=== PATIENT | female | born 1970 | race African-American/Black ===

== ENCOUNTER → 2017-01-31 | Outpatient (CLI) | payer BC ==
[~2017-01-31] MED LIST: LOSA1TAB33 PO
[2017-01-31 12:05] LABS: BASOPHILS % 1.2 % (0.0-2.0); EOSINOPHILS % 1.6 % (0.0-5.0); HEMATOCRIT. 38.7 % (36.0-48.0); HEMOGLOBIN. 12.4 g/dL (12.0-16.0); LYMPHOCYTES % 27.5 % (20.0-50.0); MEAN CORPUSCULAR HEMOGLOBIN 22.1 pg (28.0-32.0); MEAN CORPUSCULAR VOLUME 69.2 fL (81.0-99.0); MEAN PLATELET VOLUME 8.2 fl (7.4-10.4); MONOCYTES % 8.3 % (2.0-8.0); NEUTROPHILS % 61.4 % (40.0-76.0); PLATELET 329 x1000/uL (130-400); RED BLOOD CELL COUNT 5.59 mill/uL (4.2-5.4); RED CELL DISTRIBUTION WIDTH 15.6 % (11.6-14.6); WHITE BLOOD COUNT 8.6 x1000/uL (4.5-11.0)
[2017-01-31 12:12] LABS: ADD RBC MORPHOLOGY YES; DIFFERENTIAL COMMENT 1
[2017-01-31 12:28] LABS: ALANINE AMINOTRANSFERASE 28 IU/L (13-61); ANION GAP 13; CALCIUM 9.4 mg/dL (8.5-10.1); CARBON DIOXIDE 29 mEq/L (21-32); CHLORIDE 100 mEq/L (98-107); HDL CHOLESTEROL 76 mg/dL (40-59); INDEX HEMOLYSI 1 (1-3); INDEX ICTERIC 1 (1-4); INDEX LIPEMIC 1 (1-3); LDL CHOLESTEROL 134 mg/dL (5-100); T4 FREE 1.07 ng/dL (0.76-1.46); TRIGLYCERIDE 120 mg/dL (0-150); UREA NITROGEN BLOOD 12 mg/dL (7-21); eGFR > 60 mL/min (>60)
[2017-01-31 12:38] LABS: INDEX HEMOLYSI 1 (1-3)
[2017-01-31 12:53] LABS: VITAMIN B12 SERUM 638 pg/mL (211-911)
[2017-01-31 12:57] LABS: FOLIC ACID (FOLATE) SERUM > 20.00 ng/mL (>5.38)
[2017-01-31 13:20] LABS: PLATELET ESTIMATE NORMAL
[2017-02-01 09:13] LABS: VITAMIN D 25-OH 25.4 ng/mL (30.0-100.0)
[2017-02-01 13:26] LABS: *CREATININE RANDOM URINE 55.3 mg/dL (Not Estab.); MICROALBUMIN RANDOM URINE <3.0 ug/mL (Not Estab.); MICROALBUMIN/CREATININE RATIO <5.4 mg/g creat (0.0-30.0)
[2017-02-01 19:07] LABS: ANTI-NUCLEAR ANTIBODIES DIRECT Negative (Negative)
== END | disposition home or self-care (01) ==
LOC: LAB 10:46
PROVIDERS: ATTEND Internal Medicine Endocrinology, Diabetes & Metabolism
DX: I10 Essential (primary) hypertension (principal); E11.9 Type 2 diabetes mellitus without complications; M19.90 Unspecified osteoarthritis, unspecified site; E04.1 Nontoxic single thyroid nodule
CPT/HCPCS: 36415; 80053; 80061; 82043; 82306; 82570; 82607; 82746; 83036; 83921; 84439; 84443; 85025; 85651; 86038; 86430

== ENCOUNTER → 2017-05-15 | Outpatient (CLI) | payer BC ==
[2017-05-15 11:03] LABS: HEMATOCRIT. 38.4 % (36.0-48.0); HEMOGLOBIN. 12.2 g/dL (12.0-16.0); MEAN CORPUSCULAR HEMOGLOBIN 21.9 pg (28.0-32.0); MEAN CORPUSCULAR VOLUME 68.7 fL (81.0-99.0); MEAN PLATELET VOLUME 8.4 fl (7.4-10.4); PLATELET 319 x1000/uL (130-400); RED BLOOD CELL COUNT 5.58 mill/uL (4.2-5.4); RED CELL DISTRIBUTION WIDTH 15.4 % (11.6-14.6)
[2017-05-15 11:44] LABS: CARBON DIOXIDE 27 mEq/L (21-32); CHLORIDE 100 mEq/L (98-107); HDL CHOLESTEROL 67 mg/dL (40-59); LDL CHOLESTEROL 124 mg/dL (5-100); T4 FREE 1.06 ng/dL (0.76-1.46)
[2017-05-15 12:00] LABS: VITAMIN B12 SERUM 749 pg/mL (211-911)
[2017-05-15 12:52] LABS: FOLIC ACID (FOLATE) SERUM > 20.00 ng/mL (>5.38)
[2017-05-15 17:38] LABS: PLATELET ESTIMATE NORMAL
[2017-05-16 13:09] LABS: *CREATININE RANDOM URINE 79.9 mg/dL (Not Estab.); MICROALBUMIN RANDOM URINE 4.1 ug/mL (Not Estab.)
[2017-05-16 17:12] LABS: ANTI-NUCLEAR ANTIBODIES DIRECT Negative (Negative)
[2017-05-18 08:09] LABS: METHYLMALONIC ACID 84 nmol/L (0-378)
== END | disposition home or self-care (01) ==
LOC: LAB 10:32
PROVIDERS: ATTEND Internal Medicine Endocrinology, Diabetes & Metabolism
DX: I10 Essential (primary) hypertension (principal); E11.9 Type 2 diabetes mellitus without complications; M19.90 Unspecified osteoarthritis, unspecified site; E55.9 Vitamin D deficiency, unspecified
CPT/HCPCS: 36415; 80053; 80061; 82043; 82306; 82570; 82607; 82746; 83036; 83921; 84439; 84443; 85025; 85651; 86038

== ENCOUNTER → 2017-07-12 | Outpatient (CLI) | payer BC | END | disposition home or self-care (01) | LOC: MAMMO 10:37 | PROVIDERS: ATTEND Internal Medicine Endocrinology, Diabetes & Metabolism | DX: Z12.31 Encounter for screening mammogram for malignant neoplasm of breast (principal) | CPT/HCPCS: G0202 ==

== ENCOUNTER 2017-11-02 07:25 | Emergency (ER) | payer BC ==
[~2017-11-02] VITALS: Ht 175.3 cm; Wt 142.0 kg
[~2017-11-02 07:25] MED LIST changes: -LOSA1TAB33 PO; +LOSA1TAB40 PO
[2017-11-02 08:15] VITALS: BP 140/80
[2017-11-02] MEDS ORDERED: SULFACETAMIDE SODIUM 10% OPHTH DROPS 15ML BOTHEYE ONE (08:15)
== END 2017-11-02 08:55 | disposition home or self-care (01) ==
LOC: ER 07:36
DX: H10.30 Unspecified acute conjunctivitis, unspecified eye (principal); J02.9 Acute pharyngitis, unspecified; I10 Essential (primary) hypertension; E11.9 Type 2 diabetes mellitus without complications; N83.209 Unspecified ovarian cyst, unspecified side
CPT/HCPCS: 99283; Z7610

== ENCOUNTER → 2017-12-16 | Outpatient (CLI) | payer BC ==
[2017-12-16 10:57] LABS: BASOPHILS % 1.4 % (0.0-2.0); EOSINOPHILS % 2.1 % (0.0-5.0); HEMATOCRIT. 37.7 % (36.0-48.0); HEMOGLOBIN. 12.3 g/dL (12.0-16.0); LYMPHOCYTES % 26.4 % (20.0-50.0); MEAN CORPUSCULAR HEMOGLOBIN 22.5 pg (28.0-32.0); MEAN CORPUSCULAR VOLUME 68.7 fL (81.0-99.0); MEAN PLATELET VOLUME 8.2 fl (7.4-10.4); MONOCYTES % 11.6 % (2.0-8.0); NEUTROPHILS % 58.5 % (40.0-76.0); PLATELET 387 x1000/uL (130-400); RED BLOOD CELL COUNT 5.49 mill/uL (4.2-5.4); RED CELL DISTRIBUTION WIDTH 15.8 % (11.6-14.6)
[2017-12-16 11:09] LABS: CHLORIDE 97 mEq/L (98-107)
[2017-12-16 11:16] LABS: LDL CHOLESTEROL 117 mg/dL (5-100)
[2017-12-16 11:17] LABS: HDL CHOLESTEROL 64 mg/dL (40-59); TOTAL IRON BINDING CAPACITY 378 ug/dL (250-450)
[2017-12-16 11:20] LABS: KETONES URINE NEGATIVE (NEGATIVE); LEUKOCYTE ESTERASE URINE NEGATIVE (NEGATIVE); NITRITE URINE NEGATIVE (NEGATIVE); OCCULT BLOOD URINE 2+ (NEGATIVE); PH URINE 5.5 (4.5-8.0); PROTEIN URINE NEGATIVE (NEGATIVE); SPECIFIC GRAVITY URINE 1.037 (1.005-1.030); T4 FREE 1.07 ng/dL (0.76-1.46); UROBILINOGEN URINE 0.2 E.U./dL (0.2-1.0)
[2017-12-16 11:23] LABS: CLARITY URINE CLEAR (CLEAR); COLOR URINE YELLOW (YELLOW)
[2017-12-16 11:32] LABS: FERRITIN 48 ng/mL (10-291)
[2017-12-16 11:33] LABS: FOLIC ACID (FOLATE) SERUM >20 ng/mL ng/mL (>5.38)
[2017-12-16 12:27] LABS: VITAMIN B12 SERUM 616 pg/mL (211-911)
[2017-12-16 13:10] LABS: PLATELET ESTIMATE NORMAL
[2017-12-17 09:08] LABS: VITAMIN D 25-OH 22.7 ng/mL (30.0-100.0)
[2017-12-17 13:07] LABS: *CREATININE RANDOM URINE 60.9 mg/dL (Not Estab.); A/G RATIO 1.1 (0.7-1.7); ALBUMIN 3.9 g/dL (2.9-4.4); ALPHA-1-GLOBULIN 0.2 g/dL (0.0-0.4); ALPHA-2-GLOBULIN 0.7 g/dL (0.4-1.0); BETA GLOBULIN 1.3 g/dL (0.7-1.3); GAMMA GLOBULINS 1.2 g/dL (0.4-1.8); GLOBULIN TOTAL 3.4 g/dL (2.2-3.9); M-SPIKE Not Observed g/dL (Not Observed); MICROALBUMIN RANDOM URINE 4.1 ug/mL (Not Estab.); TOTAL PROTEIN SERUM 7.3 g/dL (6.0-8.5)
== END | disposition home or self-care (01) ==
LOC: LAB 10:21
PROVIDERS: ATTEND Internal Medicine Endocrinology, Diabetes & Metabolism
DX: I10 Essential (primary) hypertension (principal); E11.9 Type 2 diabetes mellitus without complications; E04.1 Nontoxic single thyroid nodule; D64.9 Anemia, unspecified; R29.2 Abnormal reflex; R79.89 Other specified abnormal findings of blood chemistry
CPT/HCPCS: 36415; 80053; 80061; 81003; 82043; 82306; 82570; 82607; 82728; 82746; 83036; 83540; 83550; 83921; 84155; 84165; 84439; 84443; 85025; 87086

== ENCOUNTER → 2018-07-03 | Outpatient (CLI) | payer BC ==
[2018-07-03 10:28] LABS: CHLORIDE 98 mEq/L (98-107)
[2018-07-03 10:30] LABS: BASOPHILS % 1.1 % (0.0-2.0); EOSINOPHILS % 1.7 % (0.0-5.0); HEMATOCRIT. 37.8 % (36.0-48.0); HEMOGLOBIN. 12.1 g/dL (12.0-16.0); LYMPHOCYTES % 25.6 % (20.0-50.0); MEAN CORPUSCULAR HEMOGLOBIN 22.3 pg (28.0-32.0); MEAN CORPUSCULAR VOLUME 69.8 fL (81.0-99.0); MEAN PLATELET VOLUME 8.7 fl (7.4-10.4); MONOCYTES % 7.3 % (2.0-8.0); NEUTROPHILS % 64.3 % (40.0-76.0); PLATELET 342 x1000/uL (130-400); RED BLOOD CELL COUNT 5.43 mill/uL (4.2-5.4); RED CELL DISTRIBUTION WIDTH 15.7 % (11.6-14.6)
[2018-07-03 10:35] LABS: CLARITY URINE CLEAR (CLEAR); COLOR URINE YELLOW (YELLOW); KETONES URINE NEGATIVE (NEGATIVE); LEUKOCYTE ESTERASE URINE NEGATIVE (NEGATIVE); NITRITE URINE NEGATIVE (NEGATIVE); OCCULT BLOOD URINE NEGATIVE (NEGATIVE); PROTEIN URINE NEGATIVE (NEGATIVE); SPECIFIC GRAVITY URINE 1.028 (1.005-1.030); UROBILINOGEN URINE 0.2 E.U./dL (0.2-1.0)
[2018-07-03 10:39] LABS: HDL CHOLESTEROL 63 mg/dL (40-59); LDL CHOLESTEROL 127 mg/dL (5-100); T4 FREE 1.07 ng/dL (0.76-1.46); TOTAL IRON BINDING CAPACITY 360 ug/dL (250-450)
[2018-07-03 11:24] LABS: VITAMIN B12 SERUM 506 pg/mL (211-911)
[2018-07-03 11:30] LABS: FOLIC ACID (FOLATE) SERUM > 20.00 ng/mL (>5.38)
[2018-07-03 12:24] LABS: FERRITIN 52 ng/mL (10-291)
[2018-07-03 15:19] LABS: PLATELET ESTIMATE NORMAL
[2018-07-04 09:11] LABS: MICROALBUMIN RANDOM URINE <3.0 ug/mL (Not Estab.)
[2018-07-04 13:11] LABS: A/G RATIO 1.3 (0.7-1.7); ALBUMIN 3.9 g/dL (2.9-4.4); ALPHA-1-GLOBULIN 0.2 g/dL (0.0-0.4); ALPHA-2-GLOBULIN 0.7 g/dL (0.4-1.0); BETA GLOBULIN 1.2 g/dL (0.7-1.3); GLOBULIN TOTAL 3.1 g/dL (2.2-3.9); M-SPIKE Not Observed g/dL (Not Observed)
[2018-07-09 06:19] LABS: METHYLMALONIC ACID 103 nmol/L (0-378)
== END | disposition home or self-care (01) ==
LOC: LAB 07:43
PROVIDERS: ATTEND Internal Medicine Endocrinology, Diabetes & Metabolism
DX: I10 Essential (primary) hypertension (principal); E78.5 Hyperlipidemia, unspecified; D64.9 Anemia, unspecified; E04.1 Nontoxic single thyroid nodule
CPT/HCPCS: 36415; 80061; 82043; 82306; 82570; 82607; 82728; 82746; 83036; 83540; 83550; 83921; 84155; 84165; 84439; 84443

== ENCOUNTER → 2018-07-11 | Outpatient (CLI) | payer BC ==
[2018-07-11 17:57] LABS: CLARITY URINE CLEAR (CLEAR); COLOR URINE YELLOW (YELLOW); KETONES URINE NEGATIVE (NEGATIVE); LEUKOCYTE ESTERASE URINE NEGATIVE (NEGATIVE); NITRITE URINE NEGATIVE (NEGATIVE); OCCULT BLOOD URINE NEGATIVE (NEGATIVE); PROTEIN URINE NEGATIVE (NEGATIVE); SPECIFIC GRAVITY URINE 1.039 (1.005-1.030); UROBILINOGEN URINE 0.2 E.U./dL (0.2-1.0)
== END | disposition home or self-care (01) ==
LOC: LAB 17:18
PROVIDERS: ATTEND Obstetrics & Gynecology Obstetrics
DX: N39.0 Urinary tract infection, site not specified (principal)

== ENCOUNTER → 2018-08-06 | Outpatient (CLI) | payer BC | END | disposition home or self-care (01) | LOC: US 12:20 | PROVIDERS: ATTEND Obstetrics & Gynecology Obstetrics | DX: D25.9 Leiomyoma of uterus, unspecified (principal) | CPT/HCPCS: 76830; 76856 ==

== ENCOUNTER → 2018-10-13 | Outpatient (CLI) | payer BC ==
[2018-10-13 09:28] LABS: CLARITY URINE CLEAR (CLEAR); COLOR URINE YELLOW (YELLOW); KETONES URINE NEGATIVE (NEGATIVE); LEUKOCYTE ESTERASE URINE NEGATIVE (NEGATIVE); NITRITE URINE NEGATIVE (NEGATIVE); OCCULT BLOOD URINE NEGATIVE (NEGATIVE); PROTEIN URINE NEGATIVE (NEGATIVE); UROBILINOGEN URINE 0.2 E.U./dL (0.2-1.0)
[2018-10-13 09:29] LABS: BASOPHILS % 1.1 % (0.0-2.0); EOSINOPHILS % 1.9 % (0.0-5.0); HEMOGLOBIN. 12.6 g/dL (12.0-16.0); MEAN CORPUSCULAR VOLUME 69.8 fL (81.0-99.0); MEAN PLATELET VOLUME 8.8 fl (7.4-10.4); MONOCYTES % 7.4 % (2.0-8.0); NEUTROPHILS % 62.6 % (40.0-76.0); PLATELET 349 x1000/uL (130-400); RED BLOOD CELL COUNT 5.74 mill/uL (4.2-5.4); RED CELL DISTRIBUTION WIDTH 15.5 % (11.6-14.6)
[2018-10-13 09:50] LABS: CHLORIDE 105 mEq/L (98-107)
[2018-10-13 09:57] LABS: LDL CHOLESTEROL 95 mg/dL (5-100)
[2018-10-13 09:58] LABS: HDL CHOLESTEROL 64 mg/dL (40-59)
[2018-10-13 09:59] LABS: T4 FREE 1.01 ng/dL (0.76-1.46)
[2018-10-13 12:55] LABS: PLATELET ESTIMATE NORMAL
[2018-10-14 13:06] LABS: *CREATININE RANDOM URINE 99.4 mg/dL (Not Estab.); MICROALBUMIN RANDOM URINE 4.6 ug/mL (Not Estab.)
== END | disposition home or self-care (01) ==
LOC: LAB 08:25
PROVIDERS: ATTEND Internal Medicine Endocrinology, Diabetes & Metabolism
DX: E78.5 Hyperlipidemia, unspecified (principal); E11.9 Type 2 diabetes mellitus without complications; I10 Essential (primary) hypertension; R31.9 Hematuria, unspecified
CPT/HCPCS: 36415; 80061; 82043; 82306; 82570; 83036; 84439; 84443

== ENCOUNTER → 2018-12-26 | Outpatient (CLI) | payer BC ==
[2018-12-26 11:19] LABS: CLARITY URINE CLEAR (CLEAR); COLOR URINE YELLOW (YELLOW); KETONES URINE NEGATIVE (NEGATIVE); LEUKOCYTE ESTERASE URINE NEGATIVE (NEGATIVE); NITRITE URINE NEGATIVE (NEGATIVE); OCCULT BLOOD URINE 3+ (NEGATIVE); PH URINE 5.5 (4.5-8.0); PROTEIN URINE NEGATIVE (NEGATIVE); SPECIFIC GRAVITY URINE 1.024 (1.005-1.030); UROBILINOGEN URINE 0.2 E.U./dL (0.2-1.0)
[2018-12-26 11:28] LABS: BASOPHILS % 1.5 % (0.0-2.0); EOSINOPHILS % 1.3 % (0.0-5.0); HEMATOCRIT. 37.6 % (36.0-48.0); HEMOGLOBIN. 11.9 g/dL (12.0-16.0); LYMPHOCYTES % 26.2 % (20.0-50.0); MEAN CORPUSCULAR HEMOGLOBIN 22.1 pg (28.0-32.0); MEAN CORPUSCULAR VOLUME 69.9 fL (81.0-99.0); MEAN PLATELET VOLUME 8.2 fl (7.4-10.4); MONOCYTES % 8.5 % (2.0-8.0); NEUTROPHILS % 62.5 % (40.0-76.0); PLATELET 361 x1000/uL (130-400); RED BLOOD CELL COUNT 5.39 mill/uL (4.2-5.4); RED CELL DISTRIBUTION WIDTH 15.6 % (11.6-14.6)
[2018-12-26 12:33] LABS: CHLORIDE 102 mEq/L (98-107)
[2018-12-26 12:38] LABS: PLATELET ESTIMATE NORMAL
[2018-12-26 12:42] LABS: LDL CHOLESTEROL 114 mg/dL (5-100)
[2018-12-26 12:43] LABS: HDL CHOLESTEROL 78 mg/dL (40-59); T4 FREE 1.15 ng/dL (0.76-1.46)
[2019-01-01 09:06] LABS: VITAMIN D 25-OH 26.8 ng/mL (30.0-100.0)
== END | disposition home or self-care (01) ==
LOC: US 10:24
PROVIDERS: ATTEND Internal Medicine Endocrinology, Diabetes & Metabolism
DX: E04.1 Nontoxic single thyroid nodule (principal); E11.9 Type 2 diabetes mellitus without complications; I10 Essential (primary) hypertension; E78.5 Hyperlipidemia, unspecified
CPT/HCPCS: 36415; 76536; 80061; 82306; 83036; 84439; 84443; 86800

== ENCOUNTER 2019-01-02 19:25 | Emergency (ER) | payer BC ==
[~2019-01-02] VITALS: Ht 175.3 cm; Wt 146.0 kg
[2019-01-02] MEDS ORDERED: HYDROCODONE/ACETAMINOPHEN 5/325MG TABLET PO ONE (20:00)
[2019-01-02 21:30] VITALS: BP 163/95
== END 2019-01-02 21:32 | disposition home or self-care (01) ==
LOC: ER 19:25
DX: S30.0XXA Contusion of lower back and pelvis, initial encounter (principal); E11.9 Type 2 diabetes mellitus without complications; I10 Essential (primary) hypertension; Z90.89 Acquired absence of other organs; Z79.899 Other long term (current) drug therapy; V49.88XA Car occupant (driver) (passenger) injured in other specified transport accidents, initial encounter; Y93.89 Activity, other specified; Y92.89 Other specified places as the place of occurrence of the external cause; Y99.8 Other external cause status
CPT/HCPCS: 72070; 72100; 99283

== ENCOUNTER → 2019-05-06 | Outpatient (CLI) | payer BC ==
[2019-05-06 09:25] LABS: BASOPHILS % 1.3 % (0.0-2.0); EOSINOPHILS % 1.8 % (0.0-5.0); HEMATOCRIT. 37.6 % (36.0-48.0); HEMOGLOBIN. 12.2 g/dL (12.0-16.0); LYMPHOCYTES % 26.3 % (20.0-50.0); MEAN CORPUSCULAR HEMOGLOBIN 22.5 pg (28.0-32.0); MEAN CORPUSCULAR VOLUME 69.5 fL (81.0-99.0); MEAN PLATELET VOLUME 8.5 fl (7.4-10.4); MONOCYTES % 9.6 % (2.0-8.0); PLATELET 319 x1000/uL (130-400); RED BLOOD CELL COUNT 5.41 mill/uL (4.2-5.4); RED CELL DISTRIBUTION WIDTH 15.1 % (11.6-14.6)
[2019-05-06 09:40] LABS: CHLORIDE 100 mEq/L (98-107)
[2019-05-06 09:50] LABS: LDL CHOLESTEROL 122 mg/dL (5-100)
[2019-05-06 09:51] LABS: T4 FREE 1.12 ng/dL (0.76-1.46)
[2019-05-06 09:52] LABS: HDL CHOLESTEROL 65 mg/dL (40-59)
[2019-05-06 12:56] LABS: PLATELET ESTIMATE NORMAL
== END | disposition home or self-care (01) ==
LOC: LAB 08:24
PROVIDERS: ATTEND Internal Medicine Endocrinology, Diabetes & Metabolism
DX: E04.1 Nontoxic single thyroid nodule (principal); I10 Essential (primary) hypertension; E11.9 Type 2 diabetes mellitus without complications; E78.5 Hyperlipidemia, unspecified; Z79.899 Other long term (current) drug therapy
CPT/HCPCS: 36415; 80061; 82306; 83036; 84439; 84443

== ENCOUNTER → 2019-06-11 | Outpatient (CLI) | payer BC | END | disposition home or self-care (01) | LOC: US 13:42 | PROVIDERS: ATTEND Obstetrics & Gynecology Obstetrics | DX: D25.9 Leiomyoma of uterus, unspecified (principal); Z90.721 Acquired absence of ovaries, unilateral | CPT/HCPCS: 76830; 76856 ==

== ENCOUNTER → 2019-07-09 | Outpatient (CLI) | payer BC | END | disposition home or self-care (01) | LOC: MRI 07-08 10:31 | DX: S83.241A Other tear of medial meniscus, current injury, right knee, initial encounter (principal); M94.261 Chondromalacia, right knee; M17.11 Unilateral primary osteoarthritis, right knee; X58.XXXA Exposure to other specified factors, initial encounter; Y93.89 Activity, other specified; Y92.89 Other specified places as the place of occurrence of the external cause; Y99.8 Other external cause status | CPT/HCPCS: 73721 ==

== ENCOUNTER → 2019-08-20 | Outpatient (CLI) | payer BC | END | disposition home or self-care (01) | LOC: MAMMO 09:02 | PROVIDERS: ATTEND Internal Medicine Endocrinology, Diabetes & Metabolism | DX: Z12.31 Encounter for screening mammogram for malignant neoplasm of breast (principal) | CPT/HCPCS: 77067 ==

== ENCOUNTER → 2019-10-13 | Outpatient (CLI) | payer BC ==
[2019-10-13 08:55] LABS: BASOPHILS % 1.1 % (0.0-2.0); EOSINOPHILS % 1.4 % (0.0-5.0); HEMATOCRIT. 39.5 % (36.0-48.0); HEMOGLOBIN. 12.7 g/dL (12.0-16.0); LYMPHOCYTES % 25.6 % (20.0-50.0); MEAN CORPUSCULAR HEMOGLOBIN 22.6 pg (28.0-32.0); MEAN CORPUSCULAR VOLUME 70.1 fL (81.0-99.0); MEAN PLATELET VOLUME 8.4 fl (7.4-10.4); MONOCYTES % 7.6 % (2.0-8.0); NEUTROPHILS % 64.3 % (40.0-76.0); PLATELET 312 x1000/uL (130-400); RED BLOOD CELL COUNT 5.63 mill/uL (4.2-5.4); RED CELL DISTRIBUTION WIDTH 15.5 % (11.6-14.6)
[2019-10-13 09:03] LABS: CHLORIDE 104 mEq/L (98-107)
[2019-10-13 09:06] LABS: CLARITY URINE CLEAR (CLEAR); COLOR URINE YELLOW (YELLOW); KETONES URINE NEGATIVE (NEGATIVE); LEUKOCYTE ESTERASE URINE NEGATIVE (NEGATIVE); NITRITE URINE NEGATIVE (NEGATIVE); OCCULT BLOOD URINE NEGATIVE (NEGATIVE); PROTEIN URINE NEGATIVE (NEGATIVE); UROBILINOGEN URINE 0.2 E.U./dL (0.2-1.0)
[2019-10-13 09:10] LABS: LDL CHOLESTEROL 111 mg/dL (5-100)
[2019-10-13 09:12] LABS: HDL CHOLESTEROL 64 mg/dL (40-59); T4 FREE 1.12 ng/dL (0.76-1.46)
[2019-10-14 10:08] LABS: *CREATININE RANDOM URINE 53.9 mg/dL (Not Estab.); MICROALBUMIN RANDOM URINE <3.0 ug/mL (Not Estab.)
== END | disposition home or self-care (01) ==
LOC: LAB 08:11
PROVIDERS: ATTEND Internal Medicine Endocrinology, Diabetes & Metabolism
DX: I10 Essential (primary) hypertension (principal); E11.9 Type 2 diabetes mellitus without complications; E78.5 Hyperlipidemia, unspecified; E04.1 Nontoxic single thyroid nodule
CPT/HCPCS: 36415; 80053; 80061; 81003; 82043; 82570; 83036; 84439; 84443; 85025; 86800

== ENCOUNTER → 2020-05-26 | Outpatient (CLI) | payer BC ==
[2020-05-26 09:10] LABS: EOSINOPHILS % 2.3 % (0.0-5.0); HEMATOCRIT. 39.7 % (36.0-48.0); HEMOGLOBIN. 12.6 g/dL (12.0-16.0); LYMPHOCYTES % 28.9 % (20.0-50.0); MEAN CORPUSCULAR HEMOGLOBIN 22.3 pg (28.0-32.0); MEAN CORPUSCULAR VOLUME 70.1 fL (81.0-99.0); MEAN PLATELET VOLUME 8.4 fl (7.4-10.4); MONOCYTES % 8.5 % (2.0-8.0); NEUTROPHILS % 59.3 % (40.0-76.0); PLATELET 323 x1000/uL (130-400); RED BLOOD CELL COUNT 5.66 mill/uL (4.2-5.4); RED CELL DISTRIBUTION WIDTH 15.5 % (11.6-14.6)
[2020-05-26 09:32] LABS: CHLORIDE 101 mEq/L (98-107)
[2020-05-26 09:39] LABS: LDL CHOLESTEROL 132 mg/dL (5-100)
[2020-05-26 09:41] LABS: HDL CHOLESTEROL 70 mg/dL (40-59); T4 FREE 1.08 ng/dL (0.76-1.46)
[2020-05-27 09:11] LABS: VITAMIN D 25-OH 37.3 ng/mL (30.0-100.0)
== END | disposition home or self-care (01) ==
LOC: LAB 08:27
PROVIDERS: ATTEND Internal Medicine Endocrinology, Diabetes & Metabolism
DX: E11.9 Type 2 diabetes mellitus without complications (principal); I10 Essential (primary) hypertension; E04.1 Nontoxic single thyroid nodule; E78.5 Hyperlipidemia, unspecified
CPT/HCPCS: 36415; 80053; 80061; 82306; 83036; 84439; 84443; 85025; 86800

== ENCOUNTER → 2020-07-21 | Outpatient (CLI) | payer BC ==
[2020-07-21 09:31] LABS: BASOPHILS % 1.3 % (0.0-2.0); EOSINOPHILS % 1.9 % (0.0-5.0); HEMATOCRIT. 39.1 % (36.0-48.0); HEMOGLOBIN. 12.5 g/dL (12.0-16.0); LYMPHOCYTES % 29.2 % (20.0-50.0); MEAN CORPUSCULAR HEMOGLOBIN 22.3 pg (28.0-32.0); MEAN CORPUSCULAR VOLUME 69.5 fL (81.0-99.0); MEAN PLATELET VOLUME 8.6 fl (7.4-10.4); MONOCYTES % 9.6 % (2.0-8.0); PLATELET 338 x1000/uL (130-400); RED BLOOD CELL COUNT 5.62 mill/uL (4.2-5.4); RED CELL DISTRIBUTION WIDTH 15.3 % (11.6-14.6)
[2020-07-21 09:47] LABS: CHLORIDE 102 mEq/L (98-107)
[2020-07-21 09:55] LABS: HDL CHOLESTEROL 72 mg/dL (40-59)
[2020-07-21 09:56] LABS: T4 FREE 1.12 ng/dL (0.76-1.46)
[2020-07-21 09:58] LABS: LDL CHOLESTEROL 124 mg/dL (5-100)
[2020-07-21 13:32] LABS: FOLIC ACID (FOLATE) SERUM > 20.00 ng/mL (>5.38)
[2020-07-21 13:40] LABS: VITAMIN B12 SERUM 575 pg/mL (211-911)
[2020-07-21 18:20] LABS: PLATELET ESTIMATE NORMAL
[2020-07-22 09:07] LABS: RF PROFILE 10.4 IU/mL (0.0-13.9)
[2020-07-22 17:10] LABS: ANTI-NUCLEAR ANTIBODIES DIRECT Negative (Negative)
[2020-07-24 17:06] LABS: CCP IgG/IgA PROFILE 4 units (0-19)
== END | disposition home or self-care (01) ==
LOC: LAB 08:47
PROVIDERS: ATTEND Internal Medicine Endocrinology, Diabetes & Metabolism
DX: E11.9 Type 2 diabetes mellitus without complications (principal); I10 Essential (primary) hypertension; E04.2 Nontoxic multinodular goiter; E78.5 Hyperlipidemia, unspecified
CPT/HCPCS: 36415; 80053; 80061; 82607; 82746; 83036; 83921; 84439; 84443; 85025; 85651; 86038; 86200; 86431; 86800

== ENCOUNTER → 2020-08-22 | Outpatient (CLI) | payer BC | END | disposition home or self-care (01) | LOC: LAB 08:22 | PROVIDERS: ATTEND Obstetrics & Gynecology Obstetrics | DX: Z01.812 Encounter for preprocedural laboratory examination (principal); Z20.828 Contact with and (suspected) exposure to other viral communicable diseases | CPT/HCPCS: 87426 ==

== ENCOUNTER → 2020-08-24 | Outpatient (CLI) | payer BC | END | disposition home or self-care (01) | LOC: MAMMO 12:01 | PROVIDERS: ATTEND Obstetrics & Gynecology Obstetrics | DX: Z12.31 Encounter for screening mammogram for malignant neoplasm of breast (principal) | CPT/HCPCS: 77067 ==

== ENCOUNTER → 2020-09-26 | Outpatient (CLI) | payer BC | END | disposition home or self-care (01) | LOC: RAD 15:26 → EDSTATUS 15:47 → RAD 16:07 → EDSTATUS 16:07 | PROVIDERS: ATTEND Internal Medicine Endocrinology, Diabetes & Metabolism | DX: J40 Bronchitis, not specified as acute or chronic (principal); E11.9 Type 2 diabetes mellitus without complications; I10 Essential (primary) hypertension; E04.1 Nontoxic single thyroid nodule; E78.5 Hyperlipidemia, unspecified | CPT/HCPCS: 71046 ==

== ENCOUNTER → 2020-09-27 | Outpatient (CLI) | payer BC ==
[2020-09-27 08:09] LABS: BASOPHILS % 1.3 % (0.0-2.0); EOSINOPHILS % 1.3 % (0.0-5.0); HEMATOCRIT. 37.7 % (36.0-48.0); LYMPHOCYTES % 24.5 % (20.0-50.0); MEAN CORPUSCULAR HEMOGLOBIN 22.2 pg (28.0-32.0); MEAN CORPUSCULAR VOLUME 69.8 fL (81.0-99.0); MEAN PLATELET VOLUME 8.1 fl (7.4-10.4); MONOCYTES % 8.4 % (2.0-8.0); NEUTROPHILS % 64.5 % (40.0-76.0); PLATELET 389 x1000/uL (130-400); RED CELL DISTRIBUTION WIDTH 15.5 % (11.6-14.6)
[2020-09-27 08:17] LABS: CHLORIDE 100 mEq/L (98-107)
[2020-09-27 08:25] LABS: LDL CHOLESTEROL 142 mg/dL (5-100)
[2020-09-27 08:26] LABS: HDL CHOLESTEROL 77 mg/dL (40-59); T4 FREE 1.03 ng/dL (0.76-1.46)
[2020-09-27 17:37] LABS: PLATELET ESTIMATE NORMAL
[2020-09-28 08:07] LABS: FOLICLE STIMULATING HORMONE 14.8 mIU/mL (.); LUTEINIZING HORMONE 13.2 mIU/mL (.); PROLACTIN 5.7 ng/mL (4.8-23.3); VITAMIN D 25-OH 38.5 ng/mL (30.0-100.0)
[2020-09-28 09:09] LABS: MICROALBUMIN RANDOM URINE 3.4 ug/mL (Not Estab.)
== END | disposition home or self-care (01) ==
LOC: LAB 07:26
PROVIDERS: ATTEND Internal Medicine Endocrinology, Diabetes & Metabolism
DX: E11.9 Type 2 diabetes mellitus without complications (principal); I10 Essential (primary) hypertension; E04.1 Nontoxic single thyroid nodule; E78.5 Hyperlipidemia, unspecified
CPT/HCPCS: 36415; 80053; 80061; 82043; 82306; 82570; 83001; 83002; 83036; 84146; 84439; 84443; 85025

== ENCOUNTER → 2020-11-25 | Outpatient (CLI) | payer BC | END | disposition home or self-care (01) | LOC: LAB 11:26 | PROVIDERS: ATTEND Internal Medicine Endocrinology, Diabetes & Metabolism | DX: M25.551 Pain in right hip (principal) | CPT/HCPCS: 73502 ==

== ENCOUNTER → 2021-02-10 | Outpatient (CLI) | payer BC | END | disposition home or self-care (01) | LOC: US 15:39 | PROVIDERS: ATTEND Obstetrics & Gynecology Obstetrics | DX: D25.9 Leiomyoma of uterus, unspecified (principal); N84.0 Polyp of corpus uteri; N95.0 Postmenopausal bleeding | CPT/HCPCS: 76830; 76856 ==

== ENCOUNTER → 2021-02-23 | Outpatient (CLI) | payer BC ==
[2021-02-23 13:45] LABS: BASOPHILS % 1.2 % (0.0-2.0); EOSINOPHILS % 1.4 % (0.0-5.0); HEMATOCRIT. 40.2 % (36.0-48.0); LYMPHOCYTES % 22.8 % (20.0-50.0); MEAN CORPUSCULAR HEMOGLOBIN 22.7 pg (28.0-32.0); MEAN CORPUSCULAR VOLUME 70.1 fL (81.0-99.0); MEAN PLATELET VOLUME 8.4 fl (7.4-10.4); MONOCYTES % 9.1 % (2.0-8.0); NEUTROPHILS % 65.5 % (40.0-76.0); PLATELET 359 x1000/uL (130-400); RED BLOOD CELL COUNT 5.74 mill/uL (4.2-5.4); RED CELL DISTRIBUTION WIDTH 15.5 % (11.6-14.6)
[2021-02-23 14:00] LABS: CHLORIDE 102 mEq/L (98-107)
[2021-02-23 14:10] LABS: HDL CHOLESTEROL 88 mg/dL (40-59); T4 FREE 1.04 ng/dL (0.76-1.46)
[2021-02-23 14:11] LABS: LDL CHOLESTEROL 112 mg/dL (5-100)
[2021-02-23 14:20] LABS: FOLIC ACID (FOLATE) SERUM >20 ng/mL ng/mL (>5.38)
[2021-02-23 14:31] LABS: VITAMIN B12 SERUM 416 pg/mL (211-911)
[2021-02-24 08:07] LABS: *CREATININE RANDOM URINE 47.9 mg/dL (Not Estab.); MICROALBUMIN RANDOM URINE 3.3 ug/mL (Not Estab.)
[2021-02-25 09:06] LABS: VITAMIN D 25-OH 37.8 ng/mL (30.0-100.0)
[2021-02-25 13:06] LABS: ANTI-NUCLEAR ANTIBODIES DIRECT Negative (Negative)
== END | disposition home or self-care (01) ==
LOC: LAB 12:40
PROVIDERS: ATTEND Internal Medicine Endocrinology, Diabetes & Metabolism
DX: E11.9 Type 2 diabetes mellitus without complications (principal); I10 Essential (primary) hypertension; E04.1 Nontoxic single thyroid nodule; E78.5 Hyperlipidemia, unspecified
CPT/HCPCS: 36415; 80053; 80061; 82043; 82306; 82570; 82607; 82746; 83036; 83921; 84439; 84443; 85025; 85651; 86038; 86430

== ENCOUNTER → 2021-02-24 | Outpatient (CLI) | payer BC | END | disposition home or self-care (01) | LOC: CARD 08:16 | PROVIDERS: ATTEND Internal Medicine Endocrinology, Diabetes & Metabolism | DX: I10 Essential (primary) hypertension (principal) | CPT/HCPCS: 93005 ==

== ENCOUNTER → 2021-02-27 | Outpatient (CLI) | payer BC ==
[~2021-02-27] MED LIST changes: +ASCO-339 PO; +CHOL100044 PO; +ERTU1TAB11 PO; +FERR325T23 PO; +HYDROMORPHONE HCL/PF 2MG/ML CPJ ONE; +LOSA1TAB37 PO; +MV-M1TAB55 PO; +OMEG100017 PO; +ONDANSETRON HCL 4MG/2ML INJ ONE
== END | disposition home or self-care (01) ==
LOC: CARD 12:02
PROVIDERS: ATTEND Specialist
DX: Z01.810 Encounter for preprocedural cardiovascular examination (principal)
CPT/HCPCS: 93306

== ENCOUNTER 2021-03-01 08:50 | Day surgery (SDC) | payer BC ==
[~2021-03-01] VITALS: Ht 176.5 cm; Wt 135.2 kg
[~2021-03-01 08:50] MED LIST changes: -ASCO-339 PO; -CHOL100044 PO; -ERTU1TAB11 PO; -FERR325T23 PO; -HYDROMORPHONE HCL/PF 2MG/ML CPJ ONE; -LOSA1TAB37 PO; -MV-M1TAB55 PO; -OMEG100017 PO; -ONDANSETRON HCL 4MG/2ML INJ ONE
[2021-03-01] MEDS ORDERED: SODIUM CHLORIDE 0.9% 1,000 ML IV SCH (09:45)
[2021-03-01 09:49] LABS: CLARITY URINE CLEAR (CLEAR); COLOR URINE YELLOW (YELLOW); KETONES URINE NEGATIVE (NEGATIVE); LEUKOCYTE ESTERASE URINE NEGATIVE (NEGATIVE); NITRITE URINE NEGATIVE (NEGATIVE); OCCULT BLOOD URINE NEGATIVE (NEGATIVE); PH URINE 6.5 (4.5-8.0); PROTEIN URINE NEGATIVE (NEGATIVE); SPECIFIC GRAVITY URINE 1.027 (1.005-1.030); UROBILINOGEN URINE 0.2 E.U./dL (0.2-1.0)
[2021-03-01 10:00] LABS: PARTIAL THROMBOPLASTIN TIME 27.9 sec (23.4-31.0); PROTHROMBIN TIME 10.3 sec (9.6-11.0)
[2021-03-01 10:04] LABS: UCG SCREEN NEGATIVE
[2021-03-01] MEDS ORDERED: ERTU1TAB11 PO (10:12)
[2021-03-01] MEDS ORDERED: FERR325T23 PO (10:12)
[2021-03-01] MEDS ORDERED: OMEG100017 PO (10:12)
[2021-03-01] MEDS ORDERED: MV-M1TAB55 PO (10:12)
[2021-03-01] MEDS ORDERED: LOSA1TAB37 PO (10:14)
[2021-03-01] MEDS ORDERED: CHOL100044 PO (10:20)
[2021-03-01] MEDS ORDERED: ASCO-339 PO (10:20)
[2021-03-01] MEDS ORDERED: FENTANYL CITRATE/PF 50MCG/ML 2ML VIAL ONE (11:19)
[2021-03-01] MEDS ORDERED: MIDAZOLAM HCL 2 MG/2 ML VIAL ONE (11:19)
[2021-03-01] MEDS ORDERED: PROPOFOL 200MG/20ML VIAL IV ONE (11:23)
[2021-03-01] MEDS ORDERED: ONDANSETRON HCL 4MG/2ML INJ ONE (11:43)
[2021-03-01] MEDS ORDERED: ONDANSETRON HCL 4MG/2ML INJ IV PRN (11:45)
[2021-03-01] MEDS ORDERED: LABETALOL 5MG/ML SYR 20 MG/4 ML SYRINGE IV PRN (11:45)
[2021-03-01] MEDS ORDERED: MEPERIDINE HCL/PF 25MG/ML CPJ IV PRN (11:45)
[2021-03-01] MEDS: HYDROMORPHONE HCL/PF 2MG/ML CPJ IV PRN ×4 (12:31→13:44)
[2021-03-01 13:44] VITALS: BP 141/96
== END 2021-03-01 15:30 | disposition home or self-care (01) ==
LOC: OR 08:50
PROVIDERS: ATTEND Obstetrics & Gynecology Obstetrics
DX: N84.0 Polyp of corpus uteri (principal); I10 Essential (primary) hypertension; E11.9 Type 2 diabetes mellitus without complications; Z79.899 Other long term (current) drug therapy; Z98.890 Other specified postprocedural states
CPT/HCPCS: 36415; 58558; 81003; 81025; 82962; 85610; 85730; 88305; J1170; J2250; J2405; J2704; J3010

== ENCOUNTER → 2021-04-27 | Outpatient (CLI) | payer BC ==
[~2021-04-27] MED LIST changes: +ASCO-339 PO; +CHOL100044 PO; +ERTU1TAB11 PO; +FERR325T23 PO; +LOSA1TAB37 PO; -LOSA1TAB40 PO; +MV-M1TAB55 PO; +OMEG100017 PO
[2021-04-27 16:56] LABS: BASOPHILS % 1.2 % (0.0-2.0); EOSINOPHILS % 2.4 % (0.0-5.0); HEMATOCRIT. 36.8 % (36.0-48.0); HEMOGLOBIN. 12.1 g/dL (12.0-16.0); LYMPHOCYTES % 24.5 % (20.0-50.0); MEAN CORPUSCULAR HEMOGLOBIN 22.9 pg (28.0-32.0); MEAN CORPUSCULAR VOLUME 69.6 fL (81.0-99.0); MEAN PLATELET VOLUME 8.4 fl (7.4-10.4); MONOCYTES % 7.5 % (2.0-8.0); NEUTROPHILS % 64.4 % (40.0-76.0); PLATELET 368 x1000/uL (130-400); RED BLOOD CELL COUNT 5.29 mill/uL (4.2-5.4); RED CELL DISTRIBUTION WIDTH 15.4 % (11.6-14.6)
[2021-04-27 16:57] LABS: CHLORIDE 102 mEq/L (98-107)
[2021-04-27 17:05] LABS: HDL CHOLESTEROL 79 mg/dL (40-59); LDL CHOLESTEROL 116 mg/dL (5-100)
[2021-04-27 17:08] LABS: T4 FREE 1.04 ng/dL (0.76-1.46)
[2021-04-27 17:48] LABS: PLATELET ESTIMATE NORMAL
== END | disposition home or self-care (01) ==
LOC: LAB 15:57
PROVIDERS: ATTEND Internal Medicine Endocrinology, Diabetes & Metabolism
DX: E11.9 Type 2 diabetes mellitus without complications (principal); E78.5 Hyperlipidemia, unspecified; E04.1 Nontoxic single thyroid nodule; E55.9 Vitamin D deficiency, unspecified
CPT/HCPCS: 36415; 80053; 80061; 82306; 83036; 84439; 84443; 85025

== ENCOUNTER → 2021-08-10 | Outpatient (CLI) | payer BC ==
[~2021-08-10] MED LIST changes: +CHOL-36 PO; -CHOL100044 PO
== END | disposition home or self-care (01) ==
LOC: MAMMO 08:03
PROVIDERS: ATTEND Obstetrics & Gynecology Obstetrics
DX: N64.4 Mastodynia (principal); N63.10 Unspecified lump in the right breast, unspecified quadrant
CPT/HCPCS: 76642; 77062; 77063; 77066

== ENCOUNTER → 2021-10-24 | Outpatient (CLI) | payer BC ==
[2021-10-24 09:48] LABS: CLARITY URINE CLEAR (CLEAR); COLOR URINE YELLOW (YELLOW); KETONES URINE NEGATIVE (NEGATIVE); LEUKOCYTE ESTERASE URINE NEGATIVE (NEGATIVE); NITRITE URINE NEGATIVE (NEGATIVE); OCCULT BLOOD URINE NEGATIVE (NEGATIVE); PROTEIN URINE NEGATIVE (NEGATIVE); SPECIFIC GRAVITY URINE 1.027 (1.005-1.030); UROBILINOGEN URINE 0.2 E.U./dL (0.2-1.0)
[2021-10-24 09:53] LABS: BASOPHILS % 0.9 % (0.0-2.0); EOSINOPHILS % 1.8 % (0.0-5.0); LYMPHOCYTES % 26.6 % (20.0-50.0); MEAN CORPUSCULAR HEMOGLOBIN 21.7 pg (28.0-32.0); MEAN CORPUSCULAR VOLUME 68.7 fL (81.0-99.0); MEAN PLATELET VOLUME 8.5 fl (7.4-10.4); MONOCYTES % 8.2 % (2.0-8.0); NEUTROPHILS % 62.5 % (40.0-76.0); PLATELET 330 x1000/uL (130-400); RED BLOOD CELL COUNT 5.53 mill/uL (4.2-5.4); RED CELL DISTRIBUTION WIDTH 15.1 % (11.6-14.6)
[2021-10-24 09:59] LABS: CHLORIDE 102 mEq/L (98-107)
[2021-10-24 10:08] LABS: LDL CHOLESTEROL 111 mg/dL (5-100)
[2021-10-24 10:09] LABS: HDL CHOLESTEROL 69 mg/dL (40-59)
[2021-10-24 10:10] LABS: T4 FREE 0.98 ng/dL (0.76-1.46)
[2021-10-24 10:35] LABS: PLATELET ESTIMATE NORMAL
[2021-10-24 11:01] LABS: FOLIC ACID (FOLATE) SERUM 17.1 ng/mL (>5.38)
[2021-10-25 06:33] LABS: *CREATININE RANDOM URINE 41.7 mg/dL (Not Estab.); MICROALBUMIN RANDOM URINE <3.0 ug/mL (Not Estab.)
[2021-10-25 09:10] LABS: RF PROFILE < 10.0 IU/mL (<14.0); VITAMIN D 25-OH 30.2 ng/mL (30.0-100.0)
[2021-10-26 10:11] LABS: ANTI-NUCLEAR ANTIBODIES DIRECT Negative (Negative)
== END | disposition home or self-care (01) ==
LOC: LAB 08:24
PROVIDERS: ATTEND Internal Medicine Endocrinology, Diabetes & Metabolism
DX: E11.9 Type 2 diabetes mellitus without complications (principal); I10 Essential (primary) hypertension; E04.1 Nontoxic single thyroid nodule; E78.5 Hyperlipidemia, unspecified
CPT/HCPCS: 36415; 80053; 80061; 81003; 82043; 82306; 82570; 82607; 82746; 83036; 83921; 84439; 84443; 85025; 85651; 86038; 86200; 86431

== ENCOUNTER → 2021-11-22 | Outpatient (CLI) | payer BC | END | disposition home or self-care (01) | LOC: RAD 07:49 | PROVIDERS: ATTEND Internal Medicine Endocrinology, Diabetes & Metabolism | DX: R06.02 Shortness of breath (principal) | CPT/HCPCS: 71046 ==

== ENCOUNTER → 2021-11-28 | Outpatient (CLI) | payer BC | END | disposition home or self-care (01) | LOC: RAD 07:55 | PROVIDERS: ATTEND Internal Medicine Critical Care Medicine | DX: J01.90 Acute sinusitis, unspecified (principal) | CPT/HCPCS: 70220 ==

== ENCOUNTER → 2022-02-12 | Outpatient (CLI) | payer BC ==
[~2022-02-12] MED LIST changes: +ALIVE ONCE DAI1 EACH PO; -MV-M1TAB55 PO
[2022-02-12 09:56] LABS: BASOPHILS % 1.4 % (0.0-2.0); EOSINOPHILS % 4.3 % (0.0-5.0); HEMATOCRIT. 38.3 % (36.0-48.0); LYMPHOCYTES % 26.8 % (20.0-50.0); MEAN CORPUSCULAR HEMOGLOBIN 21.9 pg (28.0-32.0); MEAN CORPUSCULAR VOLUME 69.7 fL (81.0-99.0); MEAN PLATELET VOLUME 8.4 fl (7.4-10.4); MONOCYTES % 7.6 % (2.0-8.0); NEUTROPHILS % 59.9 % (40.0-76.0); PLATELET 327 x1000/uL (130-400); RED BLOOD CELL COUNT 5.49 mill/uL (4.2-5.4); RED CELL DISTRIBUTION WIDTH 15.5 % (11.6-14.6)
[2022-02-12 10:10] LABS: CHLORIDE 102 mEq/L (98-107)
[2022-02-12 10:23] LABS: HDL CHOLESTEROL 74 mg/dL (40-59); LDL CHOLESTEROL 115 mg/dL (5-100); T4 FREE 1.09 ng/dL (0.76-1.46)
[2022-02-12 10:29] LABS: PLATELET ESTIMATE NORMAL
== END | disposition home or self-care (01) ==
LOC: LAB 09:27
PROVIDERS: ATTEND Internal Medicine Endocrinology, Diabetes & Metabolism
DX: I10 Essential (primary) hypertension (principal); E55.9 Vitamin D deficiency, unspecified; E11.9 Type 2 diabetes mellitus without complications; E04.1 Nontoxic single thyroid nodule
CPT/HCPCS: 36415; 80053; 80061; 82306; 83036; 84439; 84443; 85025

== ENCOUNTER → 2022-05-21 | Outpatient (CLI) | payer BC ==
[~2022-05-21] MED LIST changes: +ACET-2708 PO
== END | disposition home or self-care (01) ==
LOC: LAB 08:11
PROVIDERS: ATTEND Internal Medicine Allergy & Immunology
DX: J30.9 Allergic rhinitis, unspecified (principal)
CPT/HCPCS: 82785

== ENCOUNTER → 2022-05-21 | Outpatient (CLI) | payer BC ==
[2022-05-21 11:50] LABS: CHLORIDE 102 mEq/L (98-107)
[2022-05-21 12:20] LABS: HDL CHOLESTEROL 68 mg/dL (40-59); LDL CHOLESTEROL 113 mg/dL (5-100); T4 FREE 1.14 ng/dL (0.76-1.46)
[2022-05-23 05:12] LABS: *CREATININE RANDOM URINE 46.4 mg/dL (Not Estab.); MICROALBUMIN RANDOM URINE 3.2 ug/mL (Not Estab.)
== END | disposition home or self-care (01) ==
LOC: LAB 09:53
PROVIDERS: ATTEND Internal Medicine Endocrinology, Diabetes & Metabolism
DX: E11.9 Type 2 diabetes mellitus without complications (principal); E55.9 Vitamin D deficiency, unspecified; I10 Essential (primary) hypertension; E04.9 Nontoxic goiter, unspecified
CPT/HCPCS: 36415; 80053; 80061; 82043; 82306; 82570; 83036; 84439; 84443

== ENCOUNTER 2022-06-07 07:00 | Emergency (ER) | payer BC ==
[~2022-06-07] VITALS: Ht 175.3 cm; Wt 140.8 kg
[~2022-06-07 07:00] MED LIST changes: -ACET-2708 PO
[2022-06-07 07:14] VITALS: BP 175/101
[2022-06-07] MEDS ORDERED: KETOROLAC 60MG/2ML VIAL IM ONE (07:45)
[2022-06-07] MEDS ORDERED: ACETAMINOPHEN 325MG TABLET PO ONE (07:45)
[2022-06-07] MEDS ORDERED: ACET-2708 PO (09:06)
== END 2022-06-07 09:15 | disposition home or self-care (01) ==
LOC: ER 07:00
DX: M54.59 Other low back pain (principal); I10 Essential (primary) hypertension; E11.9 Type 2 diabetes mellitus without complications; V49.49XA Driver injured in collision with other motor vehicles in traffic accident, initial encounter; Y93.89 Activity, other specified; Y92.488 Other paved roadways as the place of occurrence of the external cause
CPT/HCPCS: 72100; 81025; 96372; 99283; J1885

== ENCOUNTER → 2022-07-23 | Outpatient (CLI) | payer BC ==
[~2022-07-23] MED LIST changes: +ACET-2708 PO
[2022-07-23 09:46] LABS: BASOPHILS % 1.3 % (0.0-2.0); EOSINOPHILS % 1.9 % (0.0-5.0); HEMATOCRIT. 39.9 % (36.0-48.0); HEMOGLOBIN. 12.5 g/dL (12.0-16.0); LYMPHOCYTES % 23.5 % (20.0-50.0); MEAN CORPUSCULAR VOLUME 70.1 fL (81.0-99.0); MEAN PLATELET VOLUME 8.3 fl (7.4-10.4); MONOCYTES % 8.1 % (2.0-8.0); NEUTROPHILS % 65.2 % (40.0-76.0); PLATELET 346 x1000/uL (130-400); RED BLOOD CELL COUNT 5.69 mill/uL (4.2-5.4); RED CELL DISTRIBUTION WIDTH 15.6 % (11.6-14.6)
[2022-07-23 10:59] LABS: CHLORIDE 101 mEq/L (98-107)
[2022-07-23 11:17] LABS: HDL CHOLESTEROL 80 mg/dL (40-59); LDL CHOLESTEROL 121 mg/dL (5-100); T4 FREE 1.06 ng/dL (0.76-1.46)
== END | disposition home or self-care (01) ==
LOC: LAB 09:00
PROVIDERS: ATTEND Internal Medicine Endocrinology, Diabetes & Metabolism
DX: I10 Essential (primary) hypertension (principal); E11.9 Type 2 diabetes mellitus without complications; E55.9 Vitamin D deficiency, unspecified; E04.1 Nontoxic single thyroid nodule
CPT/HCPCS: 36415; 80053; 80061; 82306; 83036; 84439; 84443; 85025

== ENCOUNTER → 2022-11-02 | Outpatient (CLI) | payer BC ==
[2022-11-02 09:01] LABS: EOSINOPHILS % 1.8 % (0.0-5.0); HEMATOCRIT. 41.3 % (36.0-48.0); HEMOGLOBIN. 12.8 g/dL (12.0-16.0); LYMPHOCYTES % 24.5 % (20.0-50.0); MEAN CORPUSCULAR HEMOGLOBIN 21.6 pg (28.0-32.0); MEAN CORPUSCULAR VOLUME 69.4 fL (81.0-99.0); MEAN PLATELET VOLUME 8.4 fl (7.4-10.4); MONOCYTES % 7.2 % (2.0-8.0); NEUTROPHILS % 65.5 % (40.0-76.0); PLATELET 394 x1000/uL (130-400); RED BLOOD CELL COUNT 5.94 mill/uL (4.2-5.4); RED CELL DISTRIBUTION WIDTH 15.5 % (11.6-14.6)
[2022-11-02 09:19] LABS: CHLORIDE 103 mEq/L (98-107)
[2022-11-02 09:37] LABS: HDL CHOLESTEROL 76 mg/dL (40-59); LDL CHOLESTEROL 129 mg/dL (5-100); T4 FREE 1.11 ng/dL (0.76-1.46)
[2022-11-02 12:14] LABS: PLATELET ESTIMATE NORMAL
[2022-11-06 09:10] LABS: VITAMIN D 25-OH 38.3 ng/mL (30.0-100.0)
== END | disposition home or self-care (01) ==
LOC: LAB 08:20
PROVIDERS: ATTEND Internal Medicine Endocrinology, Diabetes & Metabolism
DX: I10 Essential (primary) hypertension (principal); E11.9 Type 2 diabetes mellitus without complications; E55.9 Vitamin D deficiency, unspecified; E04.1 Nontoxic single thyroid nodule
CPT/HCPCS: 36415; 80053; 80061; 82306; 83036; 84439; 84443; 85025; 86800

== ENCOUNTER → 2022-12-06 | Outpatient (CLI) | payer BC | END | disposition home or self-care (01) | LOC: US 15:43 | PROVIDERS: ATTEND Internal Medicine Endocrinology, Diabetes & Metabolism | DX: E04.2 Nontoxic multinodular goiter (principal) | CPT/HCPCS: 76536 ==

== ENCOUNTER → 2023-01-04 | Outpatient (CLI) | payer BC ==
[2023-01-04 09:27] LABS: BASOPHILS % 1.3 % (0.0-2.0); EOSINOPHILS % 1.9 % (0.0-5.0); HEMATOCRIT. 37.7 % (36.0-48.0); LYMPHOCYTES % 27.8 % (20.0-50.0); MEAN CORPUSCULAR HEMOGLOBIN 22.3 pg (28.0-32.0); MEAN CORPUSCULAR VOLUME 70.2 fL (81.0-99.0); MEAN PLATELET VOLUME 8.1 fl (7.4-10.4); MONOCYTES % 8.5 % (2.0-8.0); NEUTROPHILS % 60.5 % (40.0-76.0); PLATELET 332 x1000/uL (130-400); RED BLOOD CELL COUNT 5.37 mill/uL (4.2-5.4); RED CELL DISTRIBUTION WIDTH 15.2 % (11.6-14.6)
[2023-01-04 09:42] LABS: CHLORIDE 102 mEq/L (98-107)
[2023-01-04 09:58] LABS: HDL CHOLESTEROL 67 mg/dL (40-59); LDL CHOLESTEROL 80 mg/dL (5-100); T4 FREE 0.98 ng/dL (0.76-1.46)
[2023-01-05 08:07] LABS: *CREATININE RANDOM URINE 41.1 mg/dL (Not Estab.); MICROALBUMIN RANDOM URINE <3.0 ug/mL (Not Estab.)
== END | disposition home or self-care (01) ==
LOC: LAB 08:10
PROVIDERS: ATTEND Internal Medicine Endocrinology, Diabetes & Metabolism
DX: I10 Essential (primary) hypertension (principal); E11.9 Type 2 diabetes mellitus without complications; E78.00 Pure hypercholesterolemia, unspecified; E04.1 Nontoxic single thyroid nodule
CPT/HCPCS: 36415; 80053; 80061; 82043; 82570; 83036; 84439; 84443; 85025

== ENCOUNTER → 2023-03-21 | Outpatient (CLI) | payer BC ==
[2023-03-21 09:31] LABS: BASOPHILS % 1.5 % (0.0-2.0); EOSINOPHILS % 1.7 % (0.0-5.0); HEMOGLOBIN. 12.3 g/dL (12.0-16.0); LYMPHOCYTES % 24.2 % (20.0-50.0); MEAN CORPUSCULAR HEMOGLOBIN 22.4 pg (28.0-32.0); MEAN CORPUSCULAR VOLUME 69.2 fL (81.0-99.0); MEAN PLATELET VOLUME 8.5 fl (7.4-10.4); MONOCYTES % 10.2 % (2.0-8.0); NEUTROPHILS % 62.4 % (40.0-76.0); PLATELET 328 x1000/uL (130-400); RED CELL DISTRIBUTION WIDTH 15.4 % (11.6-14.6)
[2023-03-21 09:46] LABS: CHLORIDE 102 mEq/L (98-107)
[2023-03-21 09:58] LABS: HDL CHOLESTEROL 68 mg/dL (40-59); LDL CHOLESTEROL 114 mg/dL (5-100); T4 FREE 1.21 ng/dL (0.76-1.46)
[2023-03-21 20:36] LABS: PLATELET ESTIMATE NORMAL
[2023-03-22 08:12] LABS: *CREATININE RANDOM URINE 52.7 mg/dL (Not Estab.); MICROALBUMIN RANDOM URINE <3.0 ug/mL (Not Estab.)
== END | disposition home or self-care (01) ==
LOC: LAB 08:52
PROVIDERS: ATTEND Internal Medicine Endocrinology, Diabetes & Metabolism
DX: I10 Essential (primary) hypertension (principal); E11.9 Type 2 diabetes mellitus without complications; E55.9 Vitamin D deficiency, unspecified; E78.00 Pure hypercholesterolemia, unspecified; E04.9 Nontoxic goiter, unspecified
CPT/HCPCS: 36415; 80053; 80061; 82043; 82306; 82570; 83036; 84439; 84443; 85025

== ENCOUNTER → 2023-04-12 | Outpatient (CLI) | payer BC | END | disposition home or self-care (01) | LOC: MAMMO 10:42 | PROVIDERS: ATTEND Internal Medicine Endocrinology, Diabetes & Metabolism | DX: Z12.31 Encounter for screening mammogram for malignant neoplasm of breast (principal) | CPT/HCPCS: 77067 ==

== ENCOUNTER → 2023-04-30 | Outpatient (CLI) | payer BC | END | disposition home or self-care (01) | LOC: RAD 10:03 | PROVIDERS: ATTEND Internal Medicine Endocrinology, Diabetes & Metabolism | DX: R92.8 Other abnormal and inconclusive findings on diagnostic imaging of breast (principal) | CPT/HCPCS: 76641; 77065 ==

== ENCOUNTER → 2023-05-23 | Outpatient (CLI) | payer BC ==
[2023-05-23 10:28] LABS: BASOPHILS % 1.2 % (0.0-2.0); EOSINOPHILS % 1.6 % (0.0-5.0); HEMATOCRIT. 39.7 % (36.0-48.0); HEMOGLOBIN. 12.4 g/dL (12.0-16.0); LYMPHOCYTES % 28.1 % (20.0-50.0); MEAN CORPUSCULAR HEMOGLOBIN 21.8 pg (28.0-32.0); MEAN CORPUSCULAR HGB CONC 31.3 g/dL (31.0-37.0); MEAN CORPUSCULAR VOLUME 69.6 fL (81.0-99.0); MEAN PLATELET VOLUME 8.1 fl (7.4-10.4); MONOCYTES % 9.1 % (2.0-8.0); PLATELET 333 x1000/uL (130-400); RED CELL DISTRIBUTION WIDTH 15.5 % (11.6-14.6); WHITE BLOOD COUNT 7.5 x1000/uL (4.5-11.0)
[2023-05-23 10:32] LABS: ADD RBC MORPHOLOGY YES; DIFFERENTIAL COMMENT 1
[2023-05-23 10:44] LABS: CHLORIDE 102 mEq/L (98-107); INDEX HEMOLYSI 1 (1-3); INDEX ICTERIC 1 (1-4); INDEX LIPEMIC 1 (1-3); POTASSIUM 3.5 mEq/L (3.5-5.1); SODIUM 137 mEq/L (136-145)
[2023-05-23 10:52] LABS: CLARITY URINE CLEAR (CLEAR); COLOR URINE YELLOW (YELLOW); GLUCOSE URINE 3+ (NEGATIVE); KETONES URINE NEGATIVE (NEGATIVE); LEUKOCYTE ESTERASE URINE NEGATIVE (NEGATIVE); NITRITE URINE NEGATIVE (NEGATIVE); OCCULT BLOOD URINE NEGATIVE (NEGATIVE); PH URINE 5.5 (4.5-8.0); PROTEIN URINE NEGATIVE (NEGATIVE); SPECIFIC GRAVITY URINE 1.034 (1.005-1.030); UROBILINOGEN URINE 0.2 E.U./dL (0.2-1.0)
[2023-05-23 10:54] LABS: BACTERIA URINE NONE SEEN; RBC URINE NONE SEEN /hpf (0-2); SQUAMOUS EPITHELIAL CELL URINE NONE SEEN /lpf (RARE/1+); WBC URINE NONE SEEN /hpf (0-2); YEAST URINE NONE SEEN
[2023-05-23 10:58] LABS: ALBUMIN 3.9 g/dL (3.4-5.0); ASPARTATE AMINOTRANSFERASE 16 IU/L (15-37); BILIRUBIN TOTAL 0.6 mg/dL (0.1-1.0); CALCIUM 9.2 mg/dL (8.5-10.1); CARBON DIOXIDE 28 mEq/L (21-32); CHOLESTEROL 151 mg/dL (<200); CREATININE 0.7 mg/dL (0.6-1.3); GLUCOSE 168 mg/dL (70-105); HDL CHOLESTEROL 70 mg/dL (40-59); LDL CHOLESTEROL 83 mg/dL (5-100); PROTEIN TOTAL 7.5 g/dL (6.0-8.3); T4 FREE 1.11 ng/dL (0.76-1.46); TRIGLYCERIDE 87 mg/dL (0-150); UREA NITROGEN BLOOD 12 mg/dL (7-21)
[2023-05-23 12:28] LABS: ALANINE AMINOTRANSFERASE 25 IU/L (13-61)
[2023-05-23 16:24] LABS: MICROCYTOSIS 2+; PLATELET ESTIMATE NORMAL
[2023-05-24 08:13] LABS: MICROALBUMIN RANDOM URINE <3.0 ug/mL (Not Estab.); MICROALBUMIN/CREATININE RATIO <6 mg/g creat (0-29)
== END | disposition home or self-care (01) ==
LOC: LAB 09:57
PROVIDERS: ATTEND Internal Medicine Endocrinology, Diabetes & Metabolism
DX: I10 Essential (primary) hypertension (principal); E04.1 Nontoxic single thyroid nodule; E11.9 Type 2 diabetes mellitus without complications; E55.9 Vitamin D deficiency, unspecified; E78.00 Pure hypercholesterolemia, unspecified
CPT/HCPCS: 36415; 80053; 80061; 81003; 82043; 82306; 82570; 83036; 84439; 84443; 85025

== ENCOUNTER 2023-06-07 15:02 | Emergency (ER) | payer BC ==
[~2023-06-07] VITALS: Ht 175.3 cm; Wt 137.5 kg
[2023-06-07 15:10] VITALS: TEMP 97.9; O2SAT 96
[2023-06-07 15:30] VITALS: BP 161/92; PULSE 97; RESP 20
[2023-06-07] MEDS ORDERED: KETOROLAC 60MG/2ML VIAL IM ONE (15:30)
[2023-06-07] MEDS ORDERED: METH-653 MT (16:51)
[2023-06-07] MEDS ORDERED: IBUP-2029 MT (16:51)
== END 2023-06-07 17:07 | disposition home or self-care (01) ==
LOC: ER 15:02
DX: M25.561 Pain in right knee (principal); M25.562 Pain in left knee; E11.9 Type 2 diabetes mellitus without complications; E78.00 Pure hypercholesterolemia, unspecified; I10 Essential (primary) hypertension; Z79.899 Other long term (current) drug therapy; Z90.49 Acquired absence of other specified parts of digestive tract; W18.39XA Other fall on same level, initial encounter; Y93.89 Activity, other specified; Y92.89 Other specified places as the place of occurrence of the external cause; Y99.8 Other external cause status
CPT/HCPCS: 99283; 73560; 96372; J1885

== ENCOUNTER → 2023-06-12 | Outpatient (CLI) | payer BC ==
[~2023-06-12] MED LIST changes: +IBUP-2029 MT; +METH-653 MT
== END | disposition home or self-care (01) ==
LOC: MRI 14:39
DX: S83.241A Other tear of medial meniscus, current injury, right knee, initial encounter (principal); S83.511A Sprain of anterior cruciate ligament of right knee, initial encounter; M17.11 Unilateral primary osteoarthritis, right knee; M94.261 Chondromalacia, right knee; M25.761 Osteophyte, right knee; X58.XXXA Exposure to other specified factors, initial encounter; Y93.89 Activity, other specified; Y92.89 Other specified places as the place of occurrence of the external cause; Y99.8 Other external cause status
CPT/HCPCS: 73721

== ENCOUNTER → 2023-07-19 | Outpatient (CLI) | payer BC ==
[2023-07-19 08:41] LABS: BASOPHILS % 1.2 % (0.0-2.0); HEMATOCRIT. 40.3 % (36.0-48.0); HEMOGLOBIN. 12.8 g/dL (12.0-16.0); LYMPHOCYTES % 24.8 % (20.0-50.0); MEAN CORPUSCULAR HGB CONC 31.6 g/dL (31.0-37.0); MEAN CORPUSCULAR VOLUME 69.6 fL (81.0-99.0); MEAN PLATELET VOLUME 8.4 fl (7.4-10.4); MONOCYTES % 8.6 % (2.0-8.0); NEUTROPHILS % 63.4 % (40.0-76.0); PLATELET 348 x1000/uL (130-400); RED BLOOD CELL COUNT 5.79 mill/uL (4.2-5.4); RED CELL DISTRIBUTION WIDTH 15.7 % (11.6-14.6)
[2023-07-19 08:51] LABS: ADD RBC MORPHOLOGY YES; DIFFERENTIAL COMMENT 1
[2023-07-19 09:05] LABS: CHLORIDE 104 mEq/L (98-107); INDEX HEMOLYSI 1 (1-3); INDEX ICTERIC 1 (1-4); INDEX LIPEMIC 1 (1-3); POTASSIUM 3.9 mEq/L (3.5-5.1); SODIUM 138 mEq/L (136-145)
[2023-07-19 09:19] LABS: ALANINE AMINOTRANSFERASE 20 IU/L (13-61); ALBUMIN 4.1 g/dL (3.4-5.0); ASPARTATE AMINOTRANSFERASE 9 IU/L (15-37); BILIRUBIN TOTAL 0.7 mg/dL (0.1-1.0); CALCIUM 9.2 mg/dL (8.5-10.1); CARBON DIOXIDE 31 mEq/L (21-32); CHOLESTEROL 145 mg/dL (<200); CREATININE 0.7 mg/dL (0.6-1.3); GLUCOSE 135 mg/dL (70-105); HDL CHOLESTEROL 71 mg/dL (40-59); LDL CHOLESTEROL 71 mg/dL (5-100); PROTEIN TOTAL 7.8 g/dL (6.0-8.3); T4 FREE 1.17 ng/dL (0.76-1.46); TRIGLYCERIDE 68 mg/dL (0-150); UREA NITROGEN BLOOD 11 mg/dL (7-21)
[2023-07-20 13:11] LABS: *CREATININE RANDOM URINE 82.4 mg/dL (Not Estab.); MICROALBUMIN RANDOM URINE 3.6 ug/mL (Not Estab.)
[2023-07-20 14:34] LABS: MICROCYTOSIS 1+; PLATELET ESTIMATE NORMAL
== END | disposition home or self-care (01) ==
LOC: LAB 08:01
PROVIDERS: ATTEND Internal Medicine Endocrinology, Diabetes & Metabolism
DX: I10 Essential (primary) hypertension (principal); E11.9 Type 2 diabetes mellitus without complications; E55.9 Vitamin D deficiency, unspecified; E78.5 Hyperlipidemia, unspecified; E04.1 Nontoxic single thyroid nodule
CPT/HCPCS: 36415; 80053; 80061; 82043; 82570; 83036; 84439; 84443; 85025

== ENCOUNTER → 2023-10-03 | Outpatient (CLI) | payer BC ==
[2023-10-03 08:25] LABS: BASOPHILS % 2.5 % (0.0-2.0); EOSINOPHILS % 2.1 % (0.0-5.0); HEMATOCRIT. 38.9 % (36.0-48.0); HEMOGLOBIN. 12.5 g/dL (12.0-16.0); LYMPHOCYTES % 26.1 % (20.0-50.0); MEAN CORPUSCULAR HEMOGLOBIN 22.3 pg (28.0-32.0); MEAN CORPUSCULAR HGB CONC 32.1 g/dL (31.0-37.0); MEAN CORPUSCULAR VOLUME 69.5 fL (81.0-99.0); MEAN PLATELET VOLUME 8.8 fl (7.4-10.4); MONOCYTES % 8.3 % (2.0-8.0); PLATELET 377 x1000/uL (130-400); RED BLOOD CELL COUNT 5.59 mill/uL (4.2-5.4); RED CELL DISTRIBUTION WIDTH 15.7 % (11.6-14.6); WHITE BLOOD COUNT 8.6 x1000/uL (4.5-11.0)
[2023-10-03 08:36] LABS: ALANINE AMINOTRANSFERASE 14 IU/L (10-49); ALBUMIN 4.6 g/dL (3.2-4.8); ASPARTATE AMINOTRANSFERASE 15 IU/L (<34); BILIRUBIN TOTAL 0.6 mg/dL (0.1-1.0); CALCIUM 9.3 mg/dL (8.7-10.4); CARBON DIOXIDE 27 mEq/L (21-32); CHLORIDE 99 mEq/L (98-107); CHOLESTEROL 165 mg/dL (<200); CREATININE 0.7 mg/dL (0.6-1.0); GLUCOSE 141 mg/dL (70-105); HDL CHOLESTEROL 63 mg/dL (>65); LDL CHOLESTEROL 77 mg/dL (5-100); POTASSIUM 3.3 mEq/L (3.5-5.1); PROTEIN TOTAL 7.6 g/dL (6.0-8.3); SODIUM 135 mEq/L (136-145); T4 FREE 1.39 ng/dL (0.89-1.76); THYROID STIMULATING HORMONE 2.21 uIU/mL (0.55-4.78); TRIGLYCERIDE 67 mg/dL (0-150); UREA NITROGEN BLOOD 12 mg/dL (9-23)
[2023-10-03 08:43] LABS: DIFFERENTIAL COMMENT 1
[2023-10-03 08:44] LABS: ADD RBC MORPHOLOGY YES
[2023-10-03 20:29] LABS: HYPOCHROMASIA 1+; MICROCYTOSIS 3+; PLATELET ESTIMATE NORMAL
[2023-10-04 13:07] LABS: MICROALBUMIN RANDOM URINE 3.7 ug/mL (Not Estab.)
[2023-10-04 14:09] LABS: *CREATININE RANDOM URINE 68.5 mg/dL (Not Estab.)
== END | disposition home or self-care (01) ==
LOC: LAB 07:05
PROVIDERS: ATTEND Internal Medicine Endocrinology, Diabetes & Metabolism
DX: E11.9 Type 2 diabetes mellitus without complications (principal); E55.9 Vitamin D deficiency, unspecified; I10 Essential (primary) hypertension; E78.00 Pure hypercholesterolemia, unspecified
CPT/HCPCS: 36415; 80053; 80061; 82043; 82306; 82570; 83036; 84439; 84443; 85025

== ENCOUNTER 2023-11-26 09:21 | Emergency (ER) | payer BC ==
[~2023-11-26] VITALS: Ht 172.7 cm; Wt 127.0 kg
[2023-11-26 09:27] VITALS: O2SAT 97
[2023-11-26] MEDS: IBUPROFEN 600MG TABLET PO ONE (10:15)
[2023-11-26] MEDS ORDERED: NAPR220C61 MT (11:19)
[2023-11-26 11:38] VITALS: BP 145/88; PULSE 95; RESP 18; TEMP 97.9
== END 2023-11-26 11:48 | disposition home or self-care (01) ==
LOC: ER 09:59
DX: S69.92XA Unspecified injury of left wrist, hand and finger(s), initial encounter (principal); M79.89 Other specified soft tissue disorders; E11.9 Type 2 diabetes mellitus without complications; E78.00 Pure hypercholesterolemia, unspecified; I10 Essential (primary) hypertension; Z90.49 Acquired absence of other specified parts of digestive tract; Z98.890 Other specified postprocedural states; W18.39XA Other fall on same level, initial encounter; Y93.89 Activity, other specified; Y92.89 Other specified places as the place of occurrence of the external cause; Y99.8 Other external cause status
CPT/HCPCS: 29130; 73130; 73140; 99284

== ENCOUNTER → 2023-12-10 | Outpatient (CLI) | payer BC ==
[~2023-12-10] MED LIST changes: +NAPR220C61 MT
[2023-12-10 10:05] LABS: BASOPHILS % 2.8 % (0.0-2.0); DIFFERENTIAL COMMENT 0; HEMOGLOBIN. 12.6 g/dL (12.0-16.0); MEAN CORPUSCULAR HEMOGLOBIN 22.8 pg (28.0-32.0); MEAN CORPUSCULAR HGB CONC 32.3 g/dL (31.0-37.0); MEAN CORPUSCULAR VOLUME 70.4 fL (81.0-99.0); MEAN PLATELET VOLUME 8.1 fl (7.4-10.4); MONOCYTES % 7.6 % (2.0-8.0); NEUTROPHILS % 56.6 % (40.0-76.0); PLATELET 367 x1000/uL (130-400); RED BLOOD CELL COUNT 5.53 mill/uL (4.2-5.4); RED CELL DISTRIBUTION WIDTH 15.6 % (11.6-14.6); WHITE BLOOD COUNT 8.6 x1000/uL (4.5-11.0)
[2023-12-10 10:44] LABS: ALANINE AMINOTRANSFERASE 19 IU/L (10-49); ALBUMIN 4.9 g/dL (3.2-4.8); ASPARTATE AMINOTRANSFERASE 17 IU/L (<34); BILIRUBIN TOTAL 0.6 mg/dL (0.1-1.0); CALCIUM 9.8 mg/dL (8.7-10.4); CARBON DIOXIDE 25 mEq/L (21-32); CHLORIDE 104 mEq/L (98-107); CHOLESTEROL 176 mg/dL (<200); CREATININE 0.7 mg/dL (0.6-1.0); GLUCOSE 140 mg/dL (70-105); HDL CHOLESTEROL 67 mg/dL (>65); LDL CHOLESTEROL 90 mg/dL (5-100); POTASSIUM 3.8 mEq/L (3.5-5.1); PROTEIN TOTAL 7.9 g/dL (6.0-8.3); SODIUM 138 mEq/L (136-145); T4 FREE 1.13 ng/dL (0.89-1.76); THYROID STIMULATING HORMONE 1.27 uIU/mL (0.55-4.78); TRIGLYCERIDE 92 mg/dL (0-150); UREA NITROGEN BLOOD 10 mg/dL (9-23)
[2023-12-11 14:08] LABS: *CREATININE RANDOM URINE 76.6 mg/dL (Not Estab.); MICROALBUMIN RANDOM URINE <3.0 ug/mL (Not Estab.); MICROALBUMIN/CREATININE RATIO <4 mg/g creat (0-29)
== END | disposition home or self-care (01) ==
LOC: LAB 09:33
PROVIDERS: ATTEND Pathology Anatomic Pathology & Clinical Pathology
DX: I10 Essential (primary) hypertension (principal); E11.9 Type 2 diabetes mellitus without complications; E55.9 Vitamin D deficiency, unspecified; E04.1 Nontoxic single thyroid nodule
CPT/HCPCS: 36415; 80053; 80061; 82043; 82306; 82570; 83036; 84439; 84443; 85025

== ENCOUNTER → 2024-03-18 | Outpatient (CLI) | payer BC ==
[2024-03-18 08:03] LABS: CHLORIDE 101 mEq/L (98-107); POTASSIUM 3.9 mEq/L (3.5-5.1); SODIUM 134 mEq/L (136-145)
[2024-03-18 08:04] LABS: CALCIUM 9.6 mg/dL (8.7-10.4); CARBON DIOXIDE 27 mEq/L (21-32)
[2024-03-18 08:07] LABS: BASOPHILS % 0.8 % (0.0-2.0); DIFFERENTIAL COMMENT 0; EOSINOPHILS % 2.2 % (0.0-5.0); HEMATOCRIT. 39.3 % (36.0-48.0); HEMOGLOBIN. 12.5 g/dL (12.0-16.0); LYMPHOCYTES % 28.1 % (20.0-50.0); MEAN CORPUSCULAR HEMOGLOBIN 22.5 pg (28.0-32.0); MEAN CORPUSCULAR HGB CONC 31.9 g/dL (31.0-37.0); MEAN CORPUSCULAR VOLUME 70.4 fL (81.0-99.0); MEAN PLATELET VOLUME 8.4 fl (7.4-10.4); MONOCYTES % 8.3 % (2.0-8.0); NEUTROPHILS % 60.6 % (40.0-76.0); PLATELET 355 x1000/uL (130-400); RED BLOOD CELL COUNT 5.58 mill/uL (4.2-5.4); RED CELL DISTRIBUTION WIDTH 15.5 % (11.6-14.6); WHITE BLOOD COUNT 8.7 x1000/uL (4.5-11.0)
[2024-03-18 08:09] LABS: CREATININE 0.8 mg/dL (0.6-1.0); GLUCOSE 136 mg/dL (70-105); TRIGLYCERIDE 78 mg/dL (0-150); UREA NITROGEN BLOOD 10 mg/dL (9-23)
[2024-03-18 08:10] LABS: LDL CHOLESTEROL 73 mg/dL (5-100)
[2024-03-18 08:11] LABS: ALANINE AMINOTRANSFERASE 16 IU/L (10-49); ALBUMIN 4.8 g/dL (3.2-4.8); ASPARTATE AMINOTRANSFERASE 16 IU/L (<34); BILIRUBIN TOTAL 0.4 mg/dL (0.1-1.0); CHOLESTEROL 140 mg/dL (<200); HDL CHOLESTEROL 57 mg/dL (>65); PROTEIN TOTAL 7.3 g/dL (6.0-8.3)
[2024-03-18 08:13] LABS: THYROID STIMULATING HORMONE 1.85 uIU/mL (0.55-4.78)
[2024-03-19 09:11] LABS: *CREATININE RANDOM URINE 73.2 mg/dL (Not Estab.); MICROALBUMIN RANDOM URINE 3.4 ug/mL (Not Estab.)
== END | disposition home or self-care (01) ==
LOC: LAB 07:09
PROVIDERS: ATTEND Internal Medicine Endocrinology, Diabetes & Metabolism
DX: I10 Essential (primary) hypertension (principal); E78.5 Hyperlipidemia, unspecified; E11.9 Type 2 diabetes mellitus without complications; E55.9 Vitamin D deficiency, unspecified; E04.1 Nontoxic single thyroid nodule
CPT/HCPCS: 36415; 80053; 80061; 82043; 82306; 82570; 83036; 84439; 84443; 85025

== ENCOUNTER → 2024-05-19 | Outpatient (CLI) | payer BC ==
[2024-05-19 17:55] LABS: CHLORIDE 103 mEq/L (98-107); POTASSIUM 3.6 mEq/L (3.5-5.1); SODIUM 140 mEq/L (136-145)
[2024-05-19 17:56] LABS: CALCIUM 9.8 mg/dL (8.7-10.4); CARBON DIOXIDE 28 mEq/L (21-32)
[2024-05-19 18:01] LABS: CREATININE 0.9 mg/dL (0.6-1.0); GLUCOSE 116 mg/dL (70-105)
[2024-05-19 18:02] LABS: BASOPHILS % 1.4 % (0.0-2.0); DIFFERENTIAL COMMENT 0; EOSINOPHILS % 2.3 % (0.0-5.0); HEMATOCRIT. 38.3 % (36.0-48.0); LDL CHOLESTEROL 96 mg/dL (5-100); LYMPHOCYTES % 30.5 % (20.0-50.0); MEAN CORPUSCULAR HEMOGLOBIN 22.1 pg (28.0-32.0); MEAN CORPUSCULAR HGB CONC 31.4 g/dL (31.0-37.0); MEAN CORPUSCULAR VOLUME 70.5 fL (81.0-99.0); MEAN PLATELET VOLUME 8.4 fl (7.4-10.4); MONOCYTES % 9.1 % (2.0-8.0); NEUTROPHILS % 56.7 % (40.0-76.0); PLATELET 345 x1000/uL (130-400); RED BLOOD CELL COUNT 5.43 mill/uL (4.2-5.4); RED CELL DISTRIBUTION WIDTH 15.5 % (11.6-14.6); TRIGLYCERIDE 128 mg/dL (0-150); UREA NITROGEN BLOOD 11 mg/dL (9-23); WHITE BLOOD COUNT 11.5 x1000/uL (4.5-11.0)
[2024-05-19 18:03] LABS: ALANINE AMINOTRANSFERASE 16 IU/L (10-49); ALBUMIN 4.7 g/dL (3.2-4.8); ASPARTATE AMINOTRANSFERASE 16 IU/L (<34); CHOLESTEROL 171 mg/dL (<200); HDL CHOLESTEROL 63 mg/dL (>65)
[2024-05-19 18:04] LABS: BILIRUBIN TOTAL 0.5 mg/dL (0.1-1.0); PROTEIN TOTAL 7.3 g/dL (6.0-8.3)
[2024-05-19 18:06] LABS: T4 FREE 1.22 ng/dL (0.89-1.76); THYROID STIMULATING HORMONE 1.27 uIU/mL (0.55-4.78)
== END | disposition home or self-care (01) ==
LOC: LAB 17:00
PROVIDERS: ATTEND Internal Medicine Endocrinology, Diabetes & Metabolism
DX: I10 Essential (primary) hypertension (principal); E78.00 Pure hypercholesterolemia, unspecified; E11.9 Type 2 diabetes mellitus without complications; E55.9 Vitamin D deficiency, unspecified; E04.1 Nontoxic single thyroid nodule
CPT/HCPCS: 36415; 80053; 80061; 82306; 83036; 84439; 84443; 85025

== ENCOUNTER → 2024-05-29 | Outpatient (CLI) | payer BC | END | disposition home or self-care (01) | LOC: MAMMO 06:45 | PROVIDERS: ATTEND Internal Medicine Endocrinology, Diabetes & Metabolism | DX: Z12.31 Encounter for screening mammogram for malignant neoplasm of breast (principal) | CPT/HCPCS: 77063; 77067 ==

== ENCOUNTER 2024-06-03 07:04 | Emergency (ER) | payer BC, OTHER ==
[~2024-06-03] VITALS: Ht 175.3 cm; Wt 130.6 kg
[2024-06-03 07:27] VITALS: O2SAT 97
[2024-06-03] MEDS: DICYCLOMINE 10 MG/5 ML ORAL SYR PO STA (08:15)
[2024-06-03] MEDS: MAGNESIUM/ALUMINUM HYDROXIDE/SIMETHICONE 30ML UDC PO STA (08:15)
[2024-06-03] MEDS: ONDANSETRON 4MG ODT PO STA (08:15)
[2024-06-03 08:23] LABS: CLARITY URINE CLEAR (CLEAR); COLOR URINE YELLOW (YELLOW); GLUCOSE URINE 3+ (NEGATIVE); KETONES URINE 2+ (NEGATIVE); LEUKOCYTE ESTERASE URINE NEGATIVE (NEGATIVE); NITRITE URINE NEGATIVE (NEGATIVE); OCCULT BLOOD URINE NEGATIVE (NEGATIVE); PH URINE 5.5 (4.5-8.0); PROTEIN URINE NEGATIVE (NEGATIVE); SPECIFIC GRAVITY URINE 1.046 (1.005-1.030); UROBILINOGEN URINE 0.2 E.U./dL (0.2-1.0)
[2024-06-03 08:25] LABS: BASOPHILS % 0.8 % (0.0-2.0); DIFFERENTIAL COMMENT 0; EOSINOPHILS % 0.6 % (0.0-5.0); HEMATOCRIT. 41.1 % (36.0-48.0); HEMOGLOBIN. 12.9 g/dL (12.0-16.0); LYMPHOCYTES % 17.4 % (20.0-50.0); MEAN CORPUSCULAR HGB CONC 31.4 g/dL (31.0-37.0); MEAN CORPUSCULAR VOLUME 70.2 fL (81.0-99.0); MEAN PLATELET VOLUME 8.5 fl (7.4-10.4); MONOCYTES % 10.6 % (2.0-8.0); NEUTROPHILS % 70.6 % (40.0-76.0); PLATELET 358 x1000/uL (130-400); RED BLOOD CELL COUNT 5.86 mill/uL (4.2-5.4); RED CELL DISTRIBUTION WIDTH 15.6 % (11.6-14.6); WHITE BLOOD COUNT 7.8 x1000/uL (4.5-11.0)
[2024-06-03 08:29] LABS: CHLORIDE 102 mEq/L (98-107); POTASSIUM 3.2 mEq/L (3.5-5.1); SODIUM 139 mEq/L (136-145)
[2024-06-03 08:30] LABS: CARBON DIOXIDE 27 mEq/L (21-32)
[2024-06-03 08:31] LABS: CALCIUM 9.7 mg/dL (8.7-10.4)
[2024-06-03 08:34] LABS: PROTHROMBIN TIME 10.8 sec (9.6-11.0)
[2024-06-03 08:35] LABS: CREATININE 0.7 mg/dL (0.6-1.0); GLUCOSE 127 mg/dL (70-105); UREA NITROGEN BLOOD 12 mg/dL (9-23)
[2024-06-03 08:36] LABS: SQUAMOUS EPITHELIAL CELL URINE 1+ /lpf (RARE/1+)
[2024-06-03 08:37] LABS: BACTERIA URINE TRACE; RBC URINE NONE SEEN /hpf (0-2); WBC URINE NONE SEEN /hpf (0-2)
[2024-06-03] MEDS ORDERED: ONDA4TAB50 PO (09:03)
[2024-06-03] MEDS: POTASSIUM CHLORIDE 20MEQ/PACKET PO ONE (09:11)
[2024-06-03 09:12] VITALS: BP 134/70; PULSE 100; RESP 16; TEMP 36.83628; O2SAT 97
== END 2024-06-03 09:34 | disposition home or self-care (01) ==
LOC: ER 07:04
DX: A08.4 Viral intestinal infection, unspecified (principal); R11.2 Nausea with vomiting, unspecified; E87.6 Hypokalemia; E11.9 Type 2 diabetes mellitus without complications; E78.00 Pure hypercholesterolemia, unspecified; I10 Essential (primary) hypertension; Z90.49 Acquired absence of other specified parts of digestive tract; Z98.890 Other specified postprocedural states
CPT/HCPCS: 99284; 80048; 81003; 83690; 85025; 85610; 36415; Q0162

== ENCOUNTER → 2024-08-04 | Outpatient (CLI) | payer OTHER ==
[~2024-08-04] MED LIST changes: +ONDA4TAB50 PO
== END | disposition home or self-care (01) ==
LOC: MRI 07:14
PROVIDERS: ATTEND Orthopaedic Surgery
DX: S83.231A Complex tear of medial meniscus, current injury, right knee, initial encounter (principal); S83.511A Sprain of anterior cruciate ligament of right knee, initial encounter; M94.261 Chondromalacia, right knee; M25.461 Effusion, right knee; X58.XXXA Exposure to other specified factors, initial encounter; Y93.89 Activity, other specified; Y92.89 Other specified places as the place of occurrence of the external cause; Y99.8 Other external cause status
CPT/HCPCS: 73721

== ENCOUNTER → 2024-08-25 | Outpatient (CLI) | payer OTHER | END | disposition home or self-care (01) | LOC: MRI 07:29 | DX: S83.282A Other tear of lateral meniscus, current injury, left knee, initial encounter (principal); S83.242A Other tear of medial meniscus, current injury, left knee, initial encounter; M94.262 Chondromalacia, left knee; X58.XXXA Exposure to other specified factors, initial encounter; Y93.89 Activity, other specified; Y92.89 Other specified places as the place of occurrence of the external cause; Y99.8 Other external cause status | CPT/HCPCS: 73721 ==

== ENCOUNTER → 2024-11-17 | Outpatient (CLI) | payer BC ==
[2024-11-17 11:17] LABS: BASOPHILS % 1.2 % (0.0-2.0); DIFFERENTIAL COMMENT 0; EOSINOPHILS % 1.2 % (0.0-5.0); HEMATOCRIT. 38.2 % (36.0-48.0); HEMOGLOBIN. 12.2 g/dL (12.0-16.0); LYMPHOCYTES % 31.7 % (20.0-50.0); MEAN CORPUSCULAR HEMOGLOBIN 22.4 pg (28.0-32.0); MEAN CORPUSCULAR VOLUME 70.1 fL (81.0-99.0); MEAN PLATELET VOLUME 8.3 fl (7.4-10.4); MONOCYTES % 8.1 % (2.0-8.0); NEUTROPHILS % 57.8 % (40.0-76.0); PLATELET 351 x1000/uL (130-400); RED BLOOD CELL COUNT 5.45 mill/uL (4.2-5.4); RED CELL DISTRIBUTION WIDTH 15.4 % (11.6-14.6); WHITE BLOOD COUNT 8.4 x1000/uL (4.5-11.0)
[2024-11-17 11:35] LABS: CHLORIDE 99 mEq/L (98-107); POTASSIUM 3.6 mEq/L (3.5-5.1); SODIUM 139 mEq/L (136-145)
[2024-11-17 11:37] LABS: CARBON DIOXIDE 30 mEq/L (21-32)
[2024-11-17 11:38] LABS: CALCIUM 10.1 mg/dL (8.7-10.4)
[2024-11-17 11:42] LABS: CREATININE 0.7 mg/dL (0.6-1.0); GLUCOSE 109 mg/dL (70-105); IRON 113 ug/dL (50-170)
[2024-11-17 11:43] LABS: ALANINE AMINOTRANSFERASE 16 IU/L (10-49); ASPARTATE AMINOTRANSFERASE 16 IU/L (<34); LDL CHOLESTEROL 74 mg/dL (5-100); TRIGLYCERIDE 83 mg/dL (0-150); UREA NITROGEN BLOOD 11 mg/dL (9-23)
[2024-11-17 11:44] LABS: ALBUMIN 4.6 g/dL (3.2-4.8); CHOLESTEROL 157 mg/dL (<200); T4 FREE 1.27 ng/dL (0.89-1.76)
[2024-11-17 11:45] LABS: BILIRUBIN DIRECT 0.2 mg/dL (<=3.0); BILIRUBIN TOTAL 0.8 mg/dL (0.1-1.0); PROTEIN TOTAL 7.5 g/dL (6.0-8.3); THYROID STIMULATING HORMONE 1.54 uIU/mL (0.55-4.78); TOTAL IRON BINDING CAPACITY 372 ug/dl (250-425)
[2024-11-17 19:52] LABS: HDL CHOLESTEROL 61 mg/dL (>65)
== END | disposition home or self-care (01) ==
LOC: LAB 10:33
PROVIDERS: ATTEND Internal Medicine Endocrinology, Diabetes & Metabolism
DX: I10 Essential (primary) hypertension (principal); E11.65 Type 2 diabetes mellitus with hyperglycemia; E04.1 Nontoxic single thyroid nodule; D50.9 Iron deficiency anemia, unspecified; E78.00 Pure hypercholesterolemia, unspecified
CPT/HCPCS: 36415; 80053; 80061; 82248; 82728; 83036; 83540; 83550; 83695; 84439; 84443; 85025

== ENCOUNTER 2025-01-04 16:39 | Emergency (ER) | payer BC ==
[~2025-01-04] VITALS: Ht 172.7 cm; Wt 105.0 kg
[2025-01-04 16:57] VITALS: O2SAT 100
[2025-01-04] MEDS: IBUPROFEN 600MG TABLET PO ONE (17:49)
[2025-01-04] MEDS ORDERED: IBUP-2029 MT (17:55)
[2025-01-04] MEDS ORDERED: CYCL10TA21 MT (17:55)
[2025-01-04 18:21] VITALS: BP 154/90; PULSE 89; RESP 18; TEMP 37; O2SAT 100
== END 2025-01-04 18:26 | disposition home or self-care (01) ==
LOC: ER 16:39
DX: M54.2 Cervicalgia (principal); M25.512 Pain in left shoulder; E11.9 Type 2 diabetes mellitus without complications; I10 Essential (primary) hypertension; M19.012 Primary osteoarthritis, left shoulder; Z79.84 Long term (current) use of oral hypoglycemic drugs; Z79.899 Other long term (current) drug therapy; Z90.49 Acquired absence of other specified parts of digestive tract; V89.2XXA Person injured in unspecified motor-vehicle accident, traffic, initial encounter; Y93.89 Activity, other specified; Y92.89 Other specified places as the place of occurrence of the external cause; Y99.8 Other external cause status
CPT/HCPCS: 73030; 99283; Z7610

== ENCOUNTER → 2025-02-17 | Outpatient (CLI) | payer BC ==
[~2025-02-17] MED LIST changes: +CYCL10TA21 MT
[2025-02-17 08:40] LABS: BASOPHILS % 1.1 % (0.0-2.0); EOSINOPHILS % 1.7 % (0.0-5.0); HEMOGLOBIN. 12.4 g/dL (12.0-16.0); LYMPHOCYTES % 24.3 % (20.0-50.0); MEAN CORPUSCULAR HEMOGLOBIN 22.1 pg (28.0-32.0); MEAN CORPUSCULAR HGB CONC 31.7 g/dL (31.0-37.0); MEAN CORPUSCULAR VOLUME 69.7 fL (81.0-99.0); MEAN PLATELET VOLUME 8.2 fl (7.4-10.4); MONOCYTES % 8.1 % (2.0-8.0); NEUTROPHILS % 64.8 % (40.0-76.0); PLATELET 357 x1000/uL (130-400); RED CELL DISTRIBUTION WIDTH 15.2 % (11.6-14.6); WHITE BLOOD COUNT 9.6 x1000/uL (4.5-11.0)
[2025-02-17 08:44] LABS: ADD RBC MORPHOLOGY YES; DIFFERENTIAL COMMENT 1
[2025-02-17 08:46] LABS: CHLORIDE 103 mEq/L (98-107); SODIUM 140 mEq/L (136-145)
[2025-02-17 08:47] LABS: CALCIUM 9.6 mg/dL (8.7-10.4); CARBON DIOXIDE 30 mEq/L (21-32)
[2025-02-17 08:52] LABS: CREATININE 0.7 mg/dL (0.6-1.0); GLUCOSE 115 mg/dL (70-105); TRIGLYCERIDE 63 mg/dL (0-150); UREA NITROGEN BLOOD 11 mg/dL (9-23)
[2025-02-17 08:53] LABS: LDL CHOLESTEROL 69 mg/dL (5-100)
[2025-02-17 08:54] LABS: ALANINE AMINOTRANSFERASE 15 IU/L (10-49); ALBUMIN 4.5 g/dL (3.2-4.8); ASPARTATE AMINOTRANSFERASE 14 IU/L (<34); CHOLESTEROL 147 mg/dL (<200); HDL CHOLESTEROL 65 mg/dL (>65)
[2025-02-17 08:55] LABS: BILIRUBIN TOTAL 0.5 mg/dL (0.1-1.0)
[2025-02-17 08:57] LABS: T4 FREE 1.21 ng/dL (0.89-1.76); THYROID STIMULATING HORMONE 1.22 uIU/mL (0.55-4.78)
[2025-02-17 11:21] LABS: HYPOCHROMASIA 1+; MICROCYTOSIS 3+; PLATELET ESTIMATE NORMAL
== END | disposition home or self-care (01) ==
LOC: LAB 08:12
PROVIDERS: ATTEND Internal Medicine Endocrinology, Diabetes & Metabolism
DX: I10 Essential (primary) hypertension (principal); E11.9 Type 2 diabetes mellitus without complications; E04.1 Nontoxic single thyroid nodule; E78.5 Hyperlipidemia, unspecified
CPT/HCPCS: 36415; 80053; 80061; 82306; 83036; 84439; 84443; 85025

== ENCOUNTER → 2025-05-20 | Outpatient (CLI) | payer BC ==
[~2025-05-20] MED LIST changes: +IBUP-1455 MT; -IBUP-2029 MT
[2025-05-20 09:50] LABS: BASOPHILS % 0.8 % (0.0-2.0); EOSINOPHILS % 1.3 % (0.0-5.0); HEMATOCRIT. 39.0 % (36.0-48.0); HEMOGLOBIN. 12.1 g/dL (12.0-16.0); LYMPHOCYTES % 19.5 % (20.0-50.0); MEAN PLATELET VOLUME 8.1 fl (7.4-10.4); MONOCYTES % 8.8 % (2.0-8.0); NEUTROPHILS % 69.6 % (40.0-76.0); PLATELET 356 x1000/uL (130-400); RED BLOOD CELL COUNT 5.56 mill/uL (4.2-5.4); RED CELL DISTRIBUTION WIDTH 15.8 % (11.6-14.6)
[2025-05-20 09:56] LABS: ADD RBC MORPHOLOGY YES
[2025-05-20 11:39] LABS: CREATININE 0.7 mg/dL (0.6-1.0); TRIGLYCERIDE 79 mg/dL (0-150); UREA NITROGEN BLOOD 10 mg/dL (9-23)
[2025-05-20 11:40] LABS: LDL CHOLESTEROL 79 mg/dL (5-100); T4 FREE 1.38 ng/dL (0.89-1.76)
[2025-05-20 11:41] LABS: ASPARTATE AMINOTRANSFERASE 16 IU/L (<34); BILIRUBIN TOTAL 0.9 mg/dL (0.1-1.0); PROTEIN TOTAL 7.0 g/dL (6.0-8.3)
[2025-05-20 17:30] LABS: PLATELET ESTIMATE NORMAL
[2025-05-21 13:07] LABS: *CREATININE RANDOM URINE 80.1 mg/dL (Not Estab.); MICROALBUMIN RANDOM URINE 4.4 ug/mL (Not Estab.); MICROALBUMIN/CREATININE RATIO 5.0 mg/g creat (0-29)
== END | disposition home or self-care (01) ==
LOC: LAB 08:59
PROVIDERS: ATTEND Internal Medicine Endocrinology, Diabetes & Metabolism
DX: I10 Essential (primary) hypertension (principal); E11.9 Type 2 diabetes mellitus without complications; E78.5 Hyperlipidemia, unspecified; E55.9 Vitamin D deficiency, unspecified; E04.1 Nontoxic single thyroid nodule
CPT/HCPCS: 36415; 80053; 80061; 82043; 82306; 82570; 83036; 84439; 84443; 85025

== ENCOUNTER 2025-06-17 16:37 | Emergency (ER) | payer BC ==
[~2025-06-17] VITALS: Ht 175.3 cm; Wt 127.0 kg
[2025-06-17 16:51] VITALS: BP 135/83; TEMP 36.7; O2SAT 99
[2025-06-17 16:57] VITALS: PULSE 86; RESP 18; O2SAT 99
[2025-06-17] MEDS: ACETAMINOPHEN 325MG TABLET PO ONE (18:39)
[2025-06-17] MEDS ORDERED: NAPR-681 MT (19:16)
== END 2025-06-17 19:44 | disposition home or self-care (01) ==
LOC: ER 16:37
DX: M79.672 Pain in left foot (principal); E11.9 Type 2 diabetes mellitus without complications; I10 Essential (primary) hypertension; Z79.899 Other long term (current) drug therapy; Z90.49 Acquired absence of other specified parts of digestive tract; Z90.89 Acquired absence of other organs
CPT/HCPCS: 73630; 99283

== ENCOUNTER → 2025-06-22 | Outpatient (CLI) | payer BC ==
[~2025-06-22] MED LIST changes: +NAPR-681 MT
== END | disposition home or self-care (01) ==
LOC: US 10:51
PROVIDERS: ATTEND Internal Medicine Endocrinology, Diabetes & Metabolism
DX: E04.1 Nontoxic single thyroid nodule (principal)
CPT/HCPCS: 76536

== ENCOUNTER → 2025-08-24 | Outpatient (CLI) | payer BC ==
[2025-08-24 13:41] LABS: BASOPHILS % 1.3 % (0.0-2.0); EOSINOPHILS % 1.5 % (0.0-5.0); HEMATOCRIT. 38.5 % (36.0-48.0); HEMOGLOBIN. 12.3 g/dL (12.0-16.0); LYMPHOCYTES % 27.6 % (20.0-50.0); MEAN PLATELET VOLUME 8.3 fl (7.4-10.4); MONOCYTES % 9.0 % (2.0-8.0); NEUTROPHILS % 60.6 % (40.0-76.0); PLATELET 347 x1000/uL (130-400); RED BLOOD CELL COUNT 5.50 mill/uL (4.2-5.4); RED CELL DISTRIBUTION WIDTH 15.6 % (11.6-14.6)
[2025-08-24 13:46] LABS: ADD RBC MORPHOLOGY YES
[2025-08-24 13:58] LABS: CREATININE 0.7 mg/dL (0.6-1.0); TRIGLYCERIDE 80 mg/dL (0-150)
[2025-08-24 13:59] LABS: LDL CHOLESTEROL 74 mg/dL (5-100); PROTEIN TOTAL 7.3 g/dL (6.0-8.3); UREA NITROGEN BLOOD 9 mg/dL (9-23)
[2025-08-24 14:00] LABS: ASPARTATE AMINOTRANSFERASE 19 IU/L (<34)
[2025-08-24 14:01] LABS: BILIRUBIN TOTAL 0.9 mg/dL (0.1-1.0)
[2025-08-24 14:03] LABS: T4 FREE 1.21 ng/dL (0.89-1.76)
[2025-08-25 17:20] LABS: PLATELET ESTIMATE NORMAL
== END | disposition home or self-care (01) ==
LOC: LAB 12:58
PROVIDERS: ATTEND Internal Medicine Endocrinology, Diabetes & Metabolism
DX: I10 Essential (primary) hypertension (principal); E11.9 Type 2 diabetes mellitus without complications; E78.5 Hyperlipidemia, unspecified; E55.9 Vitamin D deficiency, unspecified; E04.1 Nontoxic single thyroid nodule
CPT/HCPCS: 36415; 80053; 80061; 82043; 82306; 82570; 83036; 84439; 84443; 85025

== ENCOUNTER → 2025-09-07 | Day surgery (SDC) | payer BC ==
[~2025-09-07] MED LIST changes: +LIDOCAINE HCL 1% 10 MG/ML 10ML VIAL ONE; +SODIUM BICARBONATE 4.2% 2.5MEQ/5ML VIAL IV ONE
== END | disposition home or self-care (01) ==
LOC: RAD 08:01
PROVIDERS: ATTEND Internal Medicine Endocrinology, Diabetes & Metabolism
DX: E04.1 Nontoxic single thyroid nodule (principal); Z79.899 Other long term (current) drug therapy; Z98.890 Other specified postprocedural states
CPT/HCPCS: 10005; 88172; 88173; 76536; J2003; J3490; 20206